=== PATIENT | male | born 1975 | race Native Hawaiian/Other Pacific Islander ===

== ENCOUNTER 2019-04-09 05:22 | Emergency (ER) | payer OTHER ==
[~2019-04-09] VITALS: Ht 182.9 cm; Wt 65.8 kg
--- NOTE | 2019-04-09 06:05 | NUR ---
[facility] ACC[facility]ANIED W/ OFFCERS FOR C/O L POSTERIOR HEAD OPEN BOIL. NOTED W/ DRIED BLOOD.
--- NOTE | 2019-04-09 06:12 | NUR ---
FSBS: 581 MADE AWARE
[2019-04-09] MEDS ORDERED: INSULIN REGULAR, HUMAN 100 UNIT/ML 10 ML VIAL ONE (06:17)
[2019-04-09] MEDS ORDERED: SULFAMETH/TRIMETH 800/160 MG 1 UDTAB TABLET ONE (06:17)
--- NOTE | 2019-04-09 06:24 | NUR ---
Pt was medicated as ordered and Patient discharged under custody w/ officers in stable condition. rx and Written and verbal after care instructions given. Patient verbalizes understanding of instruction.
[2019-04-09 06:28] VITALS: BP 186/109
[2019-04-09] MEDS ORDERED: INSULIN REGULAR, HUMAN 100 UNIT/ML 10 ML VIAL SQ ONE (06:30)
[2019-04-09] MEDS ORDERED: SULFAMETH/TRIMETH 800/160 MG 1 UDTAB TABLET PO ONE (06:30)
== END 2019-04-09 06:29 ==
LOC: ER 05:25
DX: B95.8 Unspecified staphylococcus as the cause of diseases classified elsewhere (principal); I10 Essential (primary) hypertension; E11.65 Type 2 diabetes mellitus with hyperglycemia
CPT/HCPCS: 82962; 96372; 99283; A6403; J1815

== ENCOUNTER 2024-11-25 19:18 | Inpatient (IN) | payer OTHER ==
[~2024-11-25] VITALS: Ht 170.2 cm; Wt 52.6 kg
[2024-11-25 20:37] LABS: BASOPHILS # (AUTO) 0.3 K/uL (0.0-0.2); BASOPHILS % (AUTO) 3.5 % (0.0-2.0); EOSINOPHILS # (AUTO) 0.1 K/uL (0.0-0.7); EOSINOPHILS % (AUTO) 1.5 % (0.0-6.0); HEMATOCRIT 23 % (39-51); HEMOGLOBIN 7.8 g/dL (13.5-17.5); LYMPHOCYTES # (AUTO) 1.3 K/uL (0.8-4.8); LYMPHOCYTES % (AUTO) 13.8 % (20.0-44.0); MEAN CORPUSCULAR HEMOGLOBIN 30 PG (26.0-33.0); MEAN CORPUSCULAR HGB CONC 34 g/dl (31.0-36.0); MEAN CORPUSCULAR VOLUME 89 fL (80-96); MONOCYTES # (AUTO) 0.9 K/uL (0.1-1.30); MONOCYTES % (AUTO) 9.7 % (2.0-12.0); NEUTROPHILS # (AUTO) 6.6 K/uL (1.8-8.9); NEUTROPHILS % (AUTO) 71.5 % (43.0-81.0); PLATELET COUNT (AUTO) 528 K/uL (150-450); RED BLOOD CELL COUNT(AUTO) 2.61 MIL/uL (4.5-6.0); RED CELL DISTRIBUTION WIDTH 20.8 % (11.5-15.0); WHITE BLOOD COUNT (AUTO) 9.2 K/uL (4.3-11.0)
[2024-11-25 20:51] LABS: INR 1.03 (0.91-1.10); PARTIAL THROMBOPLASTIN TIME 34.7 SEC (24.3-34.3); PROTHROMBIN TIME 10.9 SECS (9.2-11.1)
[2024-11-25 20:53] LABS: ALBUMIN 3.5 g/dL (3.4-5.0); BILIRUBIN,DIRECT 0.2 mg/dL (0.0-0.2); BILIRUBIN,TOTAL 0.4 mg/dL (0.2-1.0); CALCIUM, SERUM 10.1 mg/dL (8.5-10.1); TOTAL PROTEIN, SERUM 7.8 g/dL (6.4-8.2)
[2024-11-25 21:02] LABS: CREATININE 11.5 mg/dL (0.6-1.3); POTASSIUM 6.8 mmol/L (3.5-5.1)
[2024-11-25] MEDS: ALBUTEROL FS 2.5 MG/3 ML VIAL.NEB NEB ONE (21:19)
[2024-11-25] MEDS ORDERED: ALBUTEROL FS 2.5 MG/3 ML VIAL.NEB ONE (21:22)
[2024-11-25 21:24] VITALS: O2SAT 99
[2024-11-25] MEDS ORDERED: DEXTROSE 50%-WATER 50 ML DISP.SYRIN IV ONE (21:30)
[2024-11-25] MEDS ORDERED: SODIUM POLYSTYRENE SULFONATE 15 G/60 ML BOTTLE ONE (21:33)
[2024-11-25 21:34] VITALS: O2SAT 100
[2024-11-25] MEDS ORDERED: CALCIUM CHLORIDE 1,000 MG/10 ML DISP.SYRIN ONE (21:34)
[2024-11-25] MEDS ORDERED: SODIUM BICARBONATE SYR 50 MEQ/50 ML DISP.SYRIN ONE (21:34)
[2024-11-25] MEDS ORDERED: INSULIN REGULAR, HUMAN 100 UNIT/ML 10 ML VIAL ONE (21:34)
[2024-11-25] MEDS: CALCIUM CHLORIDE 1,000 MG/10 ML DISP.SYRIN IV ONE (21:35)
[2024-11-25] MEDS: DEXTROSE 50%-WATER 50 ML DISP.SYRIN IV ONE (21:37)
[2024-11-25] MEDS: INSULIN REGULAR, HUMAN 100 UNIT/ML 10 ML VIAL IV ONE (21:38)
[2024-11-25] MEDS: SODIUM POLYSTYRENE SULFONATE 15 G/60 ML BOTTLE PO ONE (21:39)
[2024-11-25] MEDS: SODIUM BICARBONATE SYR 50 MEQ/50 ML DISP.SYRIN IV ONE (21:39)
[2024-11-25 22:08] LABS: ANISOCYTOSIS 1+; BAND % (MANUAL) 1 % (0.0-5.0); EOSINOPHILS % (MANUAL) 1 % (0-4); LYMPHOCYTES % (MANUAL) 15 % (16-48); MONOCYTES % (MANUAL) 6 % (0-11.0); NEUTROPHILS % (MANUAL) 77 (42-76); PLATELET ESTIMATE INCRE
[2024-11-25 22:09] LABS: TARGET CELLS 1+
[2024-11-25] MEDS ORDERED: ACETAMINOPHEN 325 MG TABLET PO PRN (23:00)
[2024-11-25] MEDS ORDERED: MAG HYDROX/AL HYDROX/SIMETH 30 ML UDC PO PRN (23:00)
[2024-11-25] MEDS ORDERED: MAGNESIUM HYDROXIDE 30 ML UDC PO PRN (23:00)
[2024-11-25] MEDS ORDERED: DEXTROSE 50%-WATER 50 ML DISP.SYRIN IV PRN (23:30)
[2024-11-25] MEDS ORDERED: INSULIN REGULAR, HUMAN 100 UNIT/ML 3 ML VIAL SQ PRN (23:30)
[2024-11-26] VITALS: BP 167/62; TEMP 97.5; O2SAT 100
[2024-11-26 04:00] VITALS: BP 167/62; TEMP 97.5; O2SAT 100
[2024-11-26] MEDS ORDERED: BLOOD SUGAR DIAGNOSTIC 1 EACH STRIP IN SCH (06:00)
[2024-11-26] MEDS: BLOOD SUGAR DIAGNOSTIC 1 EACH STRIP IN SCH (07:30)
[2024-11-26] MEDS ORDERED: ASPI-1169 PO (08:40)
[2024-11-26] MEDS ORDERED: INSU100V39 SQ (08:40)
[2024-11-26] MEDS ORDERED: HYDR-4076 PO (08:40)
[2024-11-26] MEDS ORDERED: NUT.237L67 PO (08:40)
[2024-11-26] MEDS ORDERED: AMIN30LI2 PO (08:40)
[2024-11-26] MEDS ORDERED: PANT40SU2 PO (08:40)
[2024-11-26] MEDS ORDERED: FOLI0.8T3 PO (08:40)
[2024-11-26] MEDS ORDERED: ATOR80TA PO (08:40)
[2024-11-26] MEDS ORDERED: FOLI0.8T2 PO (08:40)
[2024-11-26] MEDS ORDERED: METO5TAB2 PO (08:40)
[2024-11-26] MEDS ORDERED: HEPA50007 SQ (08:40)
[2024-11-26] MEDS ORDERED: CHOL500062 PO (08:40)
[2024-11-26] MEDS ORDERED: TICA90TA PO (08:40)
[2024-11-26] MEDS ORDERED: CARV12.52 PO (08:40)
[2024-11-26] MEDS ORDERED: EPOE40002 SQ (08:40)
[2024-11-26] MEDS ORDERED: SUCR1TAB PO (08:40)
[2024-11-26] MEDS: PANTOPRAZOLE 40 MG VIAL IV SCH (08:52)
[2024-11-26] MEDS: HEPARIN SODIUM, PORCINE 5000 UNITS/1 ML VIAL SQ SCH (08:52)
[2024-11-26] MEDS: SODIUM ZIRCONIUM CYCLOSILICATE 10 GM POWD.PACK GT ONE (15:23)
[2024-11-26] MEDS: SODIUM ZIRCONIUM CYCLOSILICATE 10 GM POWD.PACK ONE (15:24)
[2024-11-27] VITALS (24 sets, daily range): BP systolic 137–198; BP diastolic 57–103; TEMP 98–98.2; O2SAT 0–100
[2024-11-27] MEDS: SODIUM ZIRCONIUM CYCLOSILICATE 10 GM POWD.PACK PO SCH (09:30)
[2024-11-27] MEDS: SODIUM BICARBONATE SYR 50 MEQ/50 ML DISP.SYRIN IV ONE (09:32)
[2024-11-27] MEDS: OLANZAPINE 10 MG VIAL IM ONE (10:39)
[2024-11-27] MEDS: DEXTROSE 50%-WATER 50 ML DISP.SYRIN IV PRN (11:55)
[2024-11-27 12:56] LABS: BASOPHILS # (AUTO) 0.7 K/uL (0.0-0.2); EOSINOPHILS # (AUTO) 0.2 K/uL (0.0-0.7); EOSINOPHILS % (AUTO) 1.3 % (0.0-6.0); HEMATOCRIT 23 % (39-51); HEMOGLOBIN 7.5 g/dL (13.5-17.5); LYMPHOCYTES # (AUTO) 2.4 K/uL (0.8-4.8); LYMPHOCYTES % (AUTO) 19.5 % (20.0-44.0); MEAN CORPUSCULAR HEMOGLOBIN 30 PG (26.0-33.0); MEAN CORPUSCULAR HGB CONC 33 g/dl (31.0-36.0); MEAN CORPUSCULAR VOLUME 91 fL (80-96); MONOCYTES # (AUTO) 1.3 K/uL (0.1-1.30); MONOCYTES % (AUTO) 10.7 % (2.0-12.0); NEUTROPHILS # (AUTO) 7.8 K/uL (1.8-8.9); NEUTROPHILS % (AUTO) 62.8 % (43.0-81.0); PLATELET COUNT (AUTO) 549 K/uL (150-450); RED BLOOD CELL COUNT(AUTO) 2.49 MIL/uL (4.5-6.0); RED CELL DISTRIBUTION WIDTH 20.6 % (11.5-15.0); WHITE BLOOD COUNT (AUTO) 12.4 K/uL (4.3-11.0)
[2024-11-27 13:17] LABS: BASOPHILS % (AUTO) 5.7 % (0.0-2.0)
[2024-11-27 14:47] LABS: CALCIUM, SERUM 9.1 mg/dL (8.5-10.1); MAGNESIUM 2.2 mg/dL (1.8-2.4); POTASSIUM 3.9 mmol/L (3.5-5.1)
[2024-11-27 14:56] LABS: CREATININE 7.6 mg/dL (0.6-1.3)
[2024-11-27] MEDS ORDERED: SODIUM ZIRCONIUM CYCLOSILICATE 10 GM POWD.PACK PO SCH (21:00)
[2024-11-27] MEDS: INSULIN REGULAR, HUMAN 100 UNIT/ML 3 ML VIAL SQ PRN (21:37)
[2024-11-27] MEDS: hydrALAZINE HCL IV 20 MG VIAL IV PRN (23:10)
[2024-11-28] VITALS (29 sets, daily range): BP systolic 101–181; BP diastolic 45–94; TEMP 98–99; O2SAT 96–100
[2024-11-28 04:41] LABS: BASOPHILS # (AUTO) 0.2 K/uL (0.0-0.2); BASOPHILS % (AUTO) 2.3 % (0.0-2.0); EOSINOPHILS % (AUTO) 0.5 % (0.0-6.0); LYMPHOCYTES # (AUTO) 0.8 K/uL (0.8-4.8); LYMPHOCYTES % (AUTO) 8.6 % (20.0-44.0); MEAN CORPUSCULAR HEMOGLOBIN 31 PG (26.0-33.0); MEAN CORPUSCULAR HGB CONC 35 g/dl (31.0-36.0); MEAN CORPUSCULAR VOLUME 89 fL (80-96); MONOCYTES # (AUTO) 0.9 K/uL (0.1-1.30); MONOCYTES % (AUTO) 9.5 % (2.0-12.0); NEUTROPHILS # (AUTO) 7.8 K/uL (1.8-8.9); NEUTROPHILS % (AUTO) 79.1 % (43.0-81.0); PLATELET COUNT (AUTO) 488 K/uL (150-450); RED BLOOD CELL COUNT(AUTO) 2.25 MIL/uL (4.5-6.0); RED CELL DISTRIBUTION WIDTH 20.5 % (11.5-15.0); WHITE BLOOD COUNT (AUTO) 9.8 K/uL (4.3-11.0)
[2024-11-28 05:04] LABS: CALCIUM, SERUM 9.1 mg/dL (8.5-10.1); MAGNESIUM 2.1 mg/dL (1.8-2.4); PHOSPHORUS 6.2 mg/dL (2.5-4.9); POTASSIUM 5.1 mmol/L (3.5-5.1)
[2024-11-28 05:08] LABS: CREATININE 8.6 mg/dL (0.6-1.3)
[2024-11-28 05:12] LABS: HEMATOCRIT 20 % (39-51); HEMOGLOBIN 6.9 g/dL (13.5-17.5)
[2024-11-28 06:31] LABS: BAND % (MANUAL) 5 % (0.0-5.0); BASOPHILS % (MANUAL) 0 % (0.0-2.0); EOSINOPHILS % (MANUAL) 0 % (0-4); LYMPHOCYTES % (MANUAL) 11 % (16-48); MONOCYTES % (MANUAL) 8 % (0-11.0); NEUTROPHILS % (MANUAL) 76 (42-76); PLATELET ESTIMATE ADEQUATE
[2024-11-28 06:34] LABS: ANISOCYTOSIS 1+; HYPOCHROMASIA FEW; STOMATOCYTES 1+
[2024-11-28] MEDS: EPOETIN ALFA (10,000 UNIT) 10,000 UNIT/ML VIAL SQ ONE (10:56)
[2024-11-28] MEDS: NEPRO VAN 237 ML CAN PO PRN (17:24)
[2024-11-28] MEDS: NEPRO VAN 237 ML CAN GT SCH (20:47)
[2024-11-28] MEDS ORDERED: NEPRO VAN 237 ML CAN PO SCH (21:00)
[2024-11-28] MEDS: OLANZAPINE 10 MG VIAL IM PRN (22:35)
[2024-11-29] VITALS (15 sets, daily range): BP systolic 82–180; BP diastolic 65–91; TEMP 98.2–98.6; O2SAT 96–100
[2024-11-29] MEDS: BLOOD SUGAR DIAGNOSTIC 1 EACH STRIP IN SCH (01:07)
[2024-11-29] MEDS: ONDANSETRON HCL/PF 4 MG/2 ML VIAL IVP PRN (02:02)
[2024-11-29 03:51] LABS: BASOPHILS # (AUTO) 0.1 K/uL (0.0-0.2); BASOPHILS % (AUTO) 0.7 % (0.0-2.0); EOSINOPHILS % (AUTO) 0.4 % (0.0-6.0); HEMATOCRIT 27 % (39-51); HEMOGLOBIN 8.9 g/dL (13.5-17.5); LYMPHOCYTES # (AUTO) 0.7 K/uL (0.8-4.8); LYMPHOCYTES % (AUTO) 7.6 % (20.0-44.0); MEAN CORPUSCULAR HEMOGLOBIN 30 PG (26.0-33.0); MEAN CORPUSCULAR HGB CONC 33 g/dl (31.0-36.0); MEAN CORPUSCULAR VOLUME 91 fL (80-96); MONOCYTES % (AUTO) 10.9 % (2.0-12.0); NEUTROPHILS % (AUTO) 80.4 % (43.0-81.0); PLATELET COUNT (AUTO) 492 K/uL (150-450); RED BLOOD CELL COUNT(AUTO) 2.98 MIL/uL (4.5-6.0); RED CELL DISTRIBUTION WIDTH 19.2 % (11.5-15.0); WHITE BLOOD COUNT (AUTO) 8.8 K/uL (4.3-11.0)
[2024-11-29 04:00] LABS: CALCIUM, SERUM 9.5 mg/dL (8.5-10.1); MAGNESIUM 2.2 mg/dL (1.8-2.4); POTASSIUM 4.2 mmol/L (3.5-5.1)
[2024-11-29] MEDS: PANTOPRAZOLE 40 MG/PACK PACK GT SCH (09:18)
[2024-11-29] MEDS: EPOETIN ALFA (10,000 UNIT) 10,000 UNIT/ML VIAL SQ ONE (12:33)
[2024-11-30] VITALS (7 sets, daily range): BP systolic 144–189; BP diastolic 66–83; TEMP 98.1–99; O2SAT 96–100
[2024-11-30 03:09] LABS: HEPATITIS B SURFACE AB (QUAL) Reactive (.)
[2024-11-30] MEDS ORDERED: QUET25TA GT (12:40)
== END 2024-12-01 01:05 | DRG 425 ==
LOC: ER 19:20 → TELE1 22:49 → ICU 11-27 10:37 → TELE1 11-29 08:59
PROVIDERS: ATTEND Nurse Practitioner Acute Care
PROC: 5A1D70Z Performance of Urinary Filtration, Intermittent, Less than 6 Hours Per Day (ICD-10-PCS; principal; 2024-11-26)
PROC: 30233N1 Transfusion of Nonautologous Red Blood Cells into Peripheral Vein, Percutaneous Approach (ICD-10-PCS; 2024-11-28)
DX: E87.5 Hyperkalemia (principal); G92.8 Other toxic encephalopathy; D68.59 Other primary thrombophilia; I13.2 Hypertensive heart and chronic kidney disease with heart failure and with stage 5 chronic kidney disease, or end stage renal disease; N18.6 End stage renal disease; F29 Unspecified psychosis not due to a substance or known physiological condition; G81.91 Hemiplegia, unspecified affecting right dominant side; E11.22 Type 2 diabetes mellitus with diabetic chronic kidney disease; D63.1 Anemia in chronic kidney disease; I48.20 Chronic atrial fibrillation, unspecified; E87.1 Hypo-osmolality and hyponatremia; I50.32 Chronic diastolic (congestive) heart failure; Z91.158 Patient's noncompliance with renal dialysis for other reason; Z87.19 Personal history of other diseases of the digestive system; Z99.2 Dependence on renal dialysis; R13.10 Dysphagia, unspecified; I25.2 Old myocardial infarction; Z74.01 Bed confinement status; M89.8X9 Other specified disorders of bone, unspecified site; Z53.20 Procedure and treatment not carried out because of patient's decision for unspecified reasons; Z93.1 Gastrostomy status; E78.5 Hyperlipidemia, unspecified
CPT/HCPCS: 36415; 80048-TC; 80076-TC; 82962-TC; 83735-TC; 84100-TC; 85025-TC; 85730-TC; 86706; 86850-TC; 87081-TC; 87340; 90935-TC; 92526; 92611-TC; 97530-TC; 97535-TC; G0378; J0360; J0885; J1644; J1815; J2405; J2470; J3490; J7030; J7050; P9016

== ENCOUNTER 2025-01-14 15:37 | Inpatient (IN) | payer OTHER ==
[~2025-01-14] VITALS: Ht 177.8 cm; Wt 45.4 kg
[~2025-01-14 15:37] MED LIST: AMIN30LI2 GT; ASPI-1169 GT; ATOR80TA GT; CARV12.52 GT; CHOL500062 GT; EPOE40002 SQ; FOLI0.8T2 GT; FOLI0.8T3 GT; HEPA50007 SQ; HYDR-4076 GT; INSU100V39 SQ; METO5TAB2 GT; NUT.237L67 PO; PANT40SU2 GT; QUET25TA GT; SUCR1TAB GT; TICA90TA GT
[2025-01-14] MEDS ORDERED: HALOPERIDOL LACTATE INJ 5 MG/ML VIAL ONE (16:19)
[2025-01-14] MEDS: HALOPERIDOL LACTATE INJ 5 MG/ML VIAL IM ONE (16:30)
[2025-01-14] MEDS: PANTOPRAZOLE 80 MG in IV NS 0.9% 100 ML IV ONE (16:36)
[2025-01-14] MEDS ORDERED: QUET25TA GT (16:38)
[2025-01-14] MEDS ORDERED: LORA-259 GT (16:38)
[2025-01-14] MEDS ORDERED: ONDA-97 GT (16:38)
[2025-01-14 16:49] LABS: BASOPHILS # (AUTO) 0.1 K/uL (0.0-0.2); BASOPHILS % (AUTO) 0.7 % (0.0-2.0); EOSINOPHILS % (AUTO) 0.2 % (0.0-6.0); LYMPHOCYTES # (AUTO) 2.3 K/uL (0.8-4.8); LYMPHOCYTES % (AUTO) 12.4 % (20.0-44.0); MEAN CORPUSCULAR HEMOGLOBIN 32 PG (26.0-33.0); MEAN CORPUSCULAR HGB CONC 32 g/dl (31.0-36.0); MEAN CORPUSCULAR VOLUME 102 fL (80-96); MONOCYTES # (AUTO) 1.2 K/uL (0.1-1.30); MONOCYTES % (AUTO) 6.3 % (2.0-12.0); NEUTROPHILS # (AUTO) 15.2 K/uL (1.8-8.9); NEUTROPHILS % (AUTO) 80.4 % (43.0-81.0); PLATELET COUNT (AUTO) 499 K/uL (150-450); RED CELL DISTRIBUTION WIDTH 20.6 % (11.5-15.0); WHITE BLOOD COUNT (AUTO) 18.9 K/uL (4.3-11.0)
[2025-01-14 16:55] LABS: HEMATOCRIT 20 % (39-51); RED BLOOD CELL COUNT(AUTO) 1.98 MIL/uL (4.5-6.0)
[2025-01-14 16:56] LABS: HEMOGLOBIN 6.4 g/dL (13.5-17.5)
[2025-01-14 16:57] LABS: INR 0.96 (0.91-1.10); PARTIAL THROMBOPLASTIN TIME 37.8 SEC (24.3-34.3); PROTHROMBIN TIME 10.2 SECS (9.2-11.1)
[2025-01-14 17:10] LABS: ALANINE AMINOTRANSFERASE 12 U/L (12-78); ALBUMIN 3.3 g/dL (3.4-5.0); ALKALINE PHOSPHATASE 55 U/L (46-116); ASPARTATE AMINOTRANSFERASE 13 U/L (15-37); BILIRUBIN,TOTAL 0.4 mg/dL (0.2-1.0); CALCIUM, SERUM 9.6 mg/dL (8.5-10.1); CARBON DIOXIDE 23 mmol/L (21-32); GLUCOSE 115 mg/dL (74-106); TOTAL PROTEIN, SERUM 7.2 g/dL (6.4-8.2)
[2025-01-14 17:14] LABS: CREATININE 13.7 mg/dL (0.6-1.3); UREA NITROGEN, BLOOD 103 mg/dL (7-18)
[2025-01-14 17:45] LABS: BILIRUBIN,DIRECT 0.1 mg/dL (0.0-0.2); CHLORIDE 98 mmol/L (98-107); SODIUM SERUM 134 mmol/L (136-145)
[2025-01-14 18:42] LABS: BASOPHILS % (MANUAL) 0 % (0.0-2.0); EOSINOPHILS % (MANUAL) 0 % (0-4); LYMPHOCYTES % (MANUAL) 13 % (16-48); MONOCYTES % (MANUAL) 7 % (0-11.0); NEUTROPHILS % (MANUAL) 80 (42-76)
[2025-01-14 18:43] LABS: HYPOCHROMASIA 1+; PLATELET ESTIMATE INCREASED
[2025-01-14] MEDS ORDERED: ACETAMINOPHEN 325 MG TABLET PO PRN (20:00)
[2025-01-14] MEDS ORDERED: QUETIAPINE FUMARATE 25 MG TABLET GT PRN (20:00)
[2025-01-14] MEDS ORDERED: ONDANSETRON HCL/PF 4 MG/2 ML VIAL IVP PRN (20:00)
[2025-01-14] MEDS ORDERED: MAG HYDROX/AL HYDROX/SIMETH 30 ML UDC PO PRN (20:00)
[2025-01-14] MEDS ORDERED: Z GUARD REMEDY 4 OZ OINT TP PRN (20:00)
[2025-01-14] MEDS ORDERED: MAGNESIUM HYDROXIDE 30 ML UDC PO PRN (20:00)
[2025-01-14] MEDS ORDERED: DEXTROSE 50%-WATER 50 ML DISP.SYRIN IV PRN (20:00)
[2025-01-14 20:30] VITALS: BP 128/78; TEMP 98.8; O2SAT 100
[2025-01-14] MEDS: SUCRALFATE 1 G TABLET GT SCH (22:30)
[2025-01-14] MEDS: ATORVASTATIN 40 MG TABLET GT SCH (22:30)
[2025-01-15] VITALS (8 sets, daily range): BP systolic 73–137; BP diastolic 45–91; TEMP 97.3–98.4; O2SAT 95–100
[2025-01-15] MEDS: BLOOD SUGAR DIAGNOSTIC 1 EACH STRIP IN SCH (00:19)
[2025-01-15] MEDS: METOCLOPRAMIDE HCL 10 MG/10 ML UDC GT SCH (00:23)
[2025-01-15 07:03] LABS: BASOPHILS # (AUTO) 0.1 K/uL (0.0-0.2); BASOPHILS % (AUTO) 0.6 % (0.0-2.0); CALCIUM, SERUM 9.5 mg/dL (8.5-10.1); EOSINOPHILS # (AUTO) 0.2 K/uL (0.0-0.7); EOSINOPHILS % (AUTO) 1.1 % (0.0-6.0); HEMATOCRIT 21 % (39-51); LYMPHOCYTES # (AUTO) 2.6 K/uL (0.8-4.8); LYMPHOCYTES % (AUTO) 13.9 % (20.0-44.0); MAGNESIUM 3.1 mg/dL (1.8-2.4); MEAN CORPUSCULAR HEMOGLOBIN 31 PG (26.0-33.0); MEAN CORPUSCULAR HGB CONC 33 g/dl (31.0-36.0); MEAN CORPUSCULAR VOLUME 95 fL (80-96); MONOCYTES # (AUTO) 1.6 K/uL (0.1-1.30); MONOCYTES % (AUTO) 8.4 % (2.0-12.0); NEUTROPHILS # (AUTO) 14.1 K/uL (1.8-8.9); PHOSPHORUS 4.6 mg/dL (2.5-4.9); PLATELET COUNT (AUTO) 445 K/uL (150-450); POTASSIUM 3.8 mmol/L (3.5-5.1); RED CELL DISTRIBUTION WIDTH 23.5 % (11.5-15.0); WHITE BLOOD COUNT (AUTO) 18.6 K/uL (4.3-11.0)
[2025-01-15 08:00] LABS: OCCULT BLOOD STOOL POSITIVE (NEGATIVE)
[2025-01-15 08:30] LABS: HEMOGLOBIN 6.8 g/dL (13.5-17.5)
[2025-01-15] MEDS: CHOLECALCIFEROL 1,000 UNIT TABLET (VIT D3) GT SCH (09:00)
[2025-01-15] MEDS: CARVEDILOL 12.5 MG TABLET GT SCH (09:00)
[2025-01-15] MEDS: hydrALAZINE HCL 25 MG TABLET GT SCH (09:00)
[2025-01-15] MEDS: FOLIC ACID 1 MG TABLET GT SCH (09:00)
[2025-01-15] MEDS: PROSOURCE / PROSTAT (PYXIS) 30 ML UDC GT SCH (09:00)
[2025-01-15] MEDS: NEPRO VAN 237 ML CAN PO SCH (09:00)
[2025-01-15] MEDS: VIT B CMPLX 3/FA/VIT C/BIOTIN 1 TAB TABLET GT SCH (09:00)
[2025-01-15] MEDS ORDERED: TICAGRELOR 90 MG TABLET GT SCH (09:00)
[2025-01-15 09:56] LABS: LYMPHOCYTES % (MANUAL) 12 % (16-48); NEUTROPHILS % (MANUAL) 82 (42-76)
[2025-01-15 09:57] LABS: ANISOCYTOSIS 2+; BASOPHILS % (MANUAL) 0 % (0.0-2.0); EOSINOPHILS % (MANUAL) 1 % (0-4); MONOCYTES % (MANUAL) 5 % (0-11.0); PLATELET ESTIMATE ADEQUATE
[2025-01-15] MEDS: PANTOPRAZOLE 40 MG VIAL IV SCH (10:28)
[2025-01-15] MEDS: EPOETIN ALFA (10,000 UNIT) 10,000 UNIT/ML VIAL SQ ONE (12:10)
[2025-01-16] VITALS: BP 146/48; TEMP 97.8; O2SAT 100
[2025-01-16 04:00] VITALS: BP_SYST 134; BP_DIAS 34; BP_DIAS 40; TEMP 97.5; TEMP 98.1; O2SAT 100
[2025-01-16 07:28] LABS: BASOPHILS # (AUTO) 0.1 K/uL (0.0-0.2); BASOPHILS % (AUTO) 0.9 % (0.0-2.0); EOSINOPHILS # (AUTO) 0.1 K/uL (0.0-0.7); HEMATOCRIT 30 % (39-51); LYMPHOCYTES # (AUTO) 1.9 K/uL (0.8-4.8); LYMPHOCYTES % (AUTO) 19.2 % (20.0-44.0); MEAN CORPUSCULAR HEMOGLOBIN 32 PG (26.0-33.0); MEAN CORPUSCULAR HGB CONC 33 g/dl (31.0-36.0); MEAN CORPUSCULAR VOLUME 98 fL (80-96); MONOCYTES % (AUTO) 10.2 % (2.0-12.0); NEUTROPHILS # (AUTO) 6.8 K/uL (1.8-8.9); NEUTROPHILS % (AUTO) 68.7 % (43.0-81.0); PLATELET COUNT (AUTO) 483 K/uL (150-450)
[2025-01-16 08:04] LABS: ALBUMIN 3.2 g/dL (3.4-5.0); BILIRUBIN,TOTAL 0.7 mg/dL (0.2-1.0); CALCIUM, SERUM 9.3 mg/dL (8.5-10.1); MAGNESIUM 2.8 mg/dL (1.8-2.4); PHOSPHORUS 3.9 mg/dL (2.5-4.9); POTASSIUM 3.8 mmol/L (3.5-5.1)
[2025-01-16 20:00] VITALS: BP 166/85; TEMP 98.1; O2SAT 100
[2025-01-16] MEDS: INSULIN REGULAR, HUMAN 100 UNIT/ML 3 ML VIAL SQ PRN (23:59)
[2025-01-17 00:15] VITALS: BP 143/83; TEMP 98.5; O2SAT 100
[2025-01-17 03:57] VITALS: BP 136/82; TEMP 98.9; O2SAT 100
[2025-01-17 07:00] VITALS: BP 145/92; TEMP 97.7; O2SAT 97
[2025-01-17 07:42] LABS: BASOPHILS # (AUTO) 0.1 K/uL (0.0-0.2); BASOPHILS % (AUTO) 0.8 % (0.0-2.0); EOSINOPHILS # (AUTO) 0.1 K/uL (0.0-0.7); EOSINOPHILS % (AUTO) 0.8 % (0.0-6.0); HEMATOCRIT 32 % (39-51); HEMOGLOBIN 10.4 g/dL (13.5-17.5); LYMPHOCYTES # (AUTO) 1.3 K/uL (0.8-4.8); MEAN CORPUSCULAR HEMOGLOBIN 32 PG (26.0-33.0); MEAN CORPUSCULAR HGB CONC 33 g/dl (31.0-36.0); MEAN CORPUSCULAR VOLUME 97 fL (80-96); MONOCYTES # (AUTO) 0.9 K/uL (0.1-1.30); MONOCYTES % (AUTO) 11.3 % (2.0-12.0); NEUTROPHILS # (AUTO) 5.7 K/uL (1.8-8.9); NEUTROPHILS % (AUTO) 71.1 % (43.0-81.0); PLATELET COUNT (AUTO) 458 K/uL (150-450); RED BLOOD CELL COUNT(AUTO) 3.28 MIL/uL (4.5-6.0); RED CELL DISTRIBUTION WIDTH 21.7 % (11.5-15.0)
[2025-01-17 08:10] LABS: ALBUMIN 3.3 g/dL (3.4-5.0); BILIRUBIN,TOTAL 0.5 mg/dL (0.2-1.0); CALCIUM, SERUM 9.3 mg/dL (8.5-10.1); MAGNESIUM 2.7 mg/dL (1.8-2.4); PHOSPHORUS 3.8 mg/dL (2.5-4.9); POTASSIUM 3.6 mmol/L (3.5-5.1); TOTAL PROTEIN, SERUM 6.9 g/dL (6.4-8.2)
[2025-01-17 08:35] LABS: CREATININE 10.6 mg/dL (0.6-1.3)
[2025-01-17] MEDS ORDERED: BARIUM SULFATE 98% 135 ML SUSP.RECON PO ONE (11:18)
[2025-01-17 12:00] VITALS: BP 169/95; TEMP 97.7; O2SAT 100
[2025-01-17] MEDS: NEPRO 1,000 ML BOTTLE GT PRN (13:00)
[2025-01-17 14:44] VITALS: BP 169/95
== END 2025-01-17 17:30 | DRG 663 ==
LOC: ER 15:46 → TELE 19:44 → MED 01-17 11:33
PROC: 30233N1 Transfusion of Nonautologous Red Blood Cells into Peripheral Vein, Percutaneous Approach (ICD-10-PCS; principal; 2025-01-14)
PROC: 5A1D70Z Performance of Urinary Filtration, Intermittent, Less than 6 Hours Per Day (ICD-10-PCS; 2025-01-17)
DX: D50.0 Iron deficiency anemia secondary to blood loss (chronic) (principal); G93.41 Metabolic encephalopathy; I13.2 Hypertensive heart and chronic kidney disease with heart failure and with stage 5 chronic kidney disease, or end stage renal disease; D68.59 Other primary thrombophilia; I21.A1 Myocardial infarction type 2; E44.1 Mild protein-calorie malnutrition; E88.09 Other disorders of plasma-protein metabolism, not elsewhere classified; E87.1 Hypo-osmolality and hyponatremia; N18.6 End stage renal disease; K92.2 Gastrointestinal hemorrhage, unspecified; I69.351 Hemiplegia and hemiparesis following cerebral infarction affecting right dominant side; I50.42 Chronic combined systolic (congestive) and diastolic (congestive) heart failure; R13.10 Dysphagia, unspecified; I25.2 Old myocardial infarction; Z79.4 Long term (current) use of insulin; E87.5 Hyperkalemia; D72.829 Elevated white blood cell count, unspecified; I48.91 Unspecified atrial fibrillation; Z74.01 Bed confinement status; Z99.2 Dependence on renal dialysis; Z93.1 Gastrostomy status; Z79.899 Other long term (current) drug therapy; Z91.158 Patient's noncompliance with renal dialysis for other reason
CPT/HCPCS: 36415; 71045-TC; 74230-TC; 80048-TC; 80053-TC; 80076-TC; 82272-TC; 82962-TC; 83735-TC; 84100-TC; 84484-TC; 85025-TC; 85730-TC; 86850-TC; 87081-TC; 90935-TC; 92526; 92611-TC; 93307-TC; A6403; G0378; J0885; J1630; J1815; J2470; J7030; J8597; P9016

== ENCOUNTER 2025-01-19 18:02 | Inpatient (IN) | payer OTHER ==
[~2025-01-19] VITALS: Ht 177.8 cm; Wt 46.3 kg
[~2025-01-19 18:02] MED LIST changes: -HEPA50007 SQ; +LORA-259 GT; +ONDA-97 GT; -TICA90TA GT
[2025-01-19 18:41] LABS: BASOPHILS # (AUTO) 0.1 K/uL (0.0-0.2); BASOPHILS % (AUTO) 1.2 % (0.0-2.0); EOSINOPHILS # (AUTO) 0.3 K/uL (0.0-0.7); EOSINOPHILS % (AUTO) 3.6 % (0.0-6.0); HEMATOCRIT 33 % (39-51); HEMOGLOBIN 10.9 g/dL (13.5-17.5); LYMPHOCYTES % (AUTO) 29.6 % (20.0-44.0); MEAN CORPUSCULAR HEMOGLOBIN 32 PG (26.0-33.0); MEAN CORPUSCULAR HGB CONC 33 g/dl (31.0-36.0); MEAN CORPUSCULAR VOLUME 97 fL (80-96); MONOCYTES # (AUTO) 0.9 K/uL (0.1-1.30); MONOCYTES % (AUTO) 13.4 % (2.0-12.0); NEUTROPHILS # (AUTO) 3.6 K/uL (1.8-8.9); NEUTROPHILS % (AUTO) 52.2 % (43.0-81.0); PLATELET COUNT (AUTO) 499 K/uL (150-450); RED BLOOD CELL COUNT(AUTO) 3.41 MIL/uL (4.5-6.0); RED CELL DISTRIBUTION WIDTH 22.6 % (11.5-15.0); WHITE BLOOD COUNT (AUTO) 6.9 K/uL (4.3-11.0)
[2025-01-19 18:52] LABS: MAGNESIUM 3.1 mg/dL (1.8-2.4); PHOSPHORUS 4.3 mg/dL (2.5-4.9)
[2025-01-19 18:55] LABS: ALANINE AMINOTRANSFERASE < 6 U/L (12-78); ALKALINE PHOSPHATASE 85 U/L (46-116); ASPARTATE AMINOTRANSFERASE 15 U/L (15-37); BILIRUBIN,DIRECT 0.1 mg/dL (0.0-0.2); BILIRUBIN,TOTAL 0.4 mg/dL (0.2-1.0); CALCIUM, SERUM 9.8 mg/dL (8.5-10.1); CARBON DIOXIDE 21 mmol/L (21-32); CHLORIDE 94 mmol/L (98-107); GLUCOSE 110 mg/dL (74-106); POTASSIUM 3.9 mmol/L (3.5-5.1); SODIUM SERUM 131 mmol/L (136-145); TOTAL PROTEIN, SERUM 7.1 g/dL (6.4-8.2)
[2025-01-19 18:57] LABS: UREA NITROGEN, BLOOD 83 mg/dL (7-18)
[2025-01-19 18:58] LABS: CREATININE 13.8 mg/dL (0.6-1.3)
[2025-01-19] MEDS ORDERED: Z GUARD REMEDY 4 OZ OINT TP PRN (21:00)
[2025-01-19] MEDS ORDERED: DEXTROSE 50%-WATER 50 ML DISP.SYRIN IV PRN (21:00)
[2025-01-19] MEDS ORDERED: ACETAMINOPHEN 325 MG TABLET MC PRN (21:00)
[2025-01-19] MEDS ORDERED: ONDANSETRON HCL/PF 4 MG/2 ML VIAL IVP PRN (21:00)
[2025-01-20] VITALS: BP 151/81; TEMP 97.5; O2SAT 100
[2025-01-20] MEDS: BLOOD SUGAR DIAGNOSTIC 1 EACH STRIP IN SCH (00:24)
[2025-01-20 04:00] VITALS: BP 152/85; TEMP 97.6; O2SAT 100
[2025-01-20] MEDS: INSULIN REGULAR, HUMAN 100 UNIT/ML 3 ML VIAL SQ PRN (06:34)
[2025-01-20 08:00] VITALS: BP 143/75; TEMP 97.9; O2SAT 98
[2025-01-20 10:32] LABS: BASOPHILS # (AUTO) 0.1 K/uL (0.0-0.2); BASOPHILS % (AUTO) 1.2 % (0.0-2.0); EOSINOPHILS # (AUTO) 0.3 K/uL (0.0-0.7); EOSINOPHILS % (AUTO) 3.7 % (0.0-6.0); HEMATOCRIT 34 % (39-51); HEMOGLOBIN 10.8 g/dL (13.5-17.5); LYMPHOCYTES # (AUTO) 1.8 K/uL (0.8-4.8); MEAN CORPUSCULAR HEMOGLOBIN 31 PG (26.0-33.0); MEAN CORPUSCULAR HGB CONC 32 g/dl (31.0-36.0); MEAN CORPUSCULAR VOLUME 97 fL (80-96); MONOCYTES # (AUTO) 0.9 K/uL (0.1-1.30); MONOCYTES % (AUTO) 11.1 % (2.0-12.0); NEUTROPHILS # (AUTO) 4.8 K/uL (1.8-8.9); PLATELET COUNT (AUTO) 527 K/uL (150-450); RED BLOOD CELL COUNT(AUTO) 3.44 MIL/uL (4.5-6.0); RED CELL DISTRIBUTION WIDTH 21.5 % (11.5-15.0); WHITE BLOOD COUNT (AUTO) 7.8 K/uL (4.3-11.0)
[2025-01-20 10:40] LABS: CALCIUM, SERUM 10.2 mg/dL (8.5-10.1); MAGNESIUM 3.1 mg/dL (1.8-2.4); PHOSPHORUS 4.4 mg/dL (2.5-4.9); POTASSIUM 3.9 mmol/L (3.5-5.1)
[2025-01-20 10:50] LABS: CREATININE 15.4 mg/dL (0.6-1.3)
[2025-01-20 12:00] VITALS: BP 140/87; TEMP 97.9; O2SAT 98
[2025-01-20 16:00] VITALS: BP 135/86; TEMP 97.9; O2SAT 98
[2025-01-20 20:00] VITALS: BP 133/71; TEMP 98.8; O2SAT 97
[2025-01-21] VITALS: BP 157/98; TEMP 98.2; O2SAT 97
[2025-01-21 04:00] VITALS: BP 133/84; TEMP 98.4; O2SAT 97
[2025-01-21 08:22] VITALS: BP 136/73; TEMP 98.1; O2SAT 98
[2025-01-21 12:00] VITALS: BP 136/73; TEMP 98.1; O2SAT 98
[2025-01-21] MEDS ORDERED: QUETIAPINE FUMARATE 25 MG TABLET GT PRN (15:00)
[2025-01-21 16:00] VITALS: BP 118/73; TEMP 98.1; O2SAT 98
[2025-01-21 16:51] LABS: BASOPHILS # (AUTO) 0.1 K/uL (0.0-0.2); BASOPHILS % (AUTO) 1.3 % (0.0-2.0); EOSINOPHILS # (AUTO) 0.2 K/uL (0.0-0.7); EOSINOPHILS % (AUTO) 2.3 % (0.0-6.0); HEMATOCRIT 32 % (39-51); HEMOGLOBIN 10.5 g/dL (13.5-17.5); LYMPHOCYTES # (AUTO) 1.4 K/uL (0.8-4.8); LYMPHOCYTES % (AUTO) 20.8 % (20.0-44.0); MEAN CORPUSCULAR HEMOGLOBIN 33 PG (26.0-33.0); MEAN CORPUSCULAR HGB CONC 33 g/dl (31.0-36.0); MEAN CORPUSCULAR VOLUME 98 fL (80-96); MONOCYTES # (AUTO) 0.8 K/uL (0.1-1.30); MONOCYTES % (AUTO) 12.1 % (2.0-12.0); NEUTROPHILS # (AUTO) 4.2 K/uL (1.8-8.9); NEUTROPHILS % (AUTO) 63.5 % (43.0-81.0); PLATELET COUNT (AUTO) 542 K/uL (150-450); RED BLOOD CELL COUNT(AUTO) 3.22 MIL/uL (4.5-6.0); RED CELL DISTRIBUTION WIDTH 21.6 % (11.5-15.0); WHITE BLOOD COUNT (AUTO) 6.6 K/uL (4.3-11.0)
[2025-01-21] MEDS: hydrALAZINE HCL 25 MG TABLET GT SCH (17:00)
[2025-01-21] MEDS: SUCRALFATE 1 G TABLET GT SCH (17:24)
[2025-01-21 17:29] VITALS: BP 118/52
[2025-01-21] MEDS: CARVEDILOL 12.5 MG TABLET GT SCH (17:29)
[2025-01-21 17:43] LABS: ALANINE AMINOTRANSFERASE < 6 U/L (12-78); ALBUMIN 3.3 g/dL (3.4-5.0); ALKALINE PHOSPHATASE 64 U/L (46-116); ASPARTATE AMINOTRANSFERASE 15 U/L (15-37); BILIRUBIN,TOTAL 0.4 mg/dL (0.2-1.0); CALCIUM, SERUM 8.5 mg/dL (8.5-10.1); CARBON DIOXIDE 28 mmol/L (21-32); CHLORIDE 103 mmol/L (98-107); CREATININE 4.4 mg/dL (0.6-1.3); GLUCOSE 103 mg/dL (74-106); MAGNESIUM 2.1 mg/dL (1.8-2.4); PHOSPHORUS 1.4 mg/dL (2.5-4.9); POTASSIUM 3.2 mmol/L (3.5-5.1); SODIUM SERUM 138 mmol/L (136-145); TOTAL PROTEIN, SERUM 6.8 g/dL (6.4-8.2); UREA NITROGEN, BLOOD 21 mg/dL (7-18)
[2025-01-21] MEDS ORDERED: ATORVASTATIN 40 MG TABLET GT SCH (22:00)
[2025-01-22] MEDS ORDERED: PANTOPRAZOLE 40 MG/PACK PACK GT SCH (09:00)
[2025-01-22] MEDS ORDERED: ASPIRIN 81 MG TAB.CHEW GT SCH (09:00)
== END 2025-01-21 18:02 | DRG 426 ==
LOC: ER 18:12 → TELE1 20:59
PROC: 5A1D70Z Performance of Urinary Filtration, Intermittent, Less than 6 Hours Per Day (ICD-10-PCS; principal; 2025-01-20)
DX: E87.1 Hypo-osmolality and hyponatremia (principal); G93.41 Metabolic encephalopathy; I21.A1 Myocardial infarction type 2; D68.59 Other primary thrombophilia; F05 Delirium due to known physiological condition; I13.2 Hypertensive heart and chronic kidney disease with heart failure and with stage 5 chronic kidney disease, or end stage renal disease; E44.1 Mild protein-calorie malnutrition; N18.6 End stage renal disease; E11.22 Type 2 diabetes mellitus with diabetic chronic kidney disease; F29 Unspecified psychosis not due to a substance or known physiological condition; E88.09 Other disorders of plasma-protein metabolism, not elsewhere classified; G81.91 Hemiplegia, unspecified affecting right dominant side; I50.42 Chronic combined systolic (congestive) and diastolic (congestive) heart failure; I48.91 Unspecified atrial fibrillation; I25.2 Old myocardial infarction; Z87.19 Personal history of other diseases of the digestive system; Z79.82 Long term (current) use of aspirin; Z79.4 Long term (current) use of insulin; Z79.899 Other long term (current) drug therapy; E78.5 Hyperlipidemia, unspecified; D64.9 Anemia, unspecified; F20.9 Schizophrenia, unspecified; R13.10 Dysphagia, unspecified; Z99.2 Dependence on renal dialysis; Z91.158 Patient's noncompliance with renal dialysis for other reason; Z74.01 Bed confinement status; M89.8X9 Other specified disorders of bone, unspecified site; Z93.1 Gastrostomy status
CPT/HCPCS: 36415; 71045-TC; 80048-TC; 80053-TC; 80076-TC; 82962-TC; 83735-TC; 84100-TC; 84484-TC; 85025-TC; 87081-TC; A6403; G0378; J1815; J7030

== ENCOUNTER 2025-01-26 15:57 | Inpatient (IN) | payer OTHER ==
[~2025-01-26] VITALS: Ht 162.6 cm; Wt 47.9 kg
[~2025-01-26 15:57] MED LIST changes: -FOLI0.8T2 GT; -NUT.237L67 PO
[2025-01-26 17:03] LABS: PLATELET COUNT (AUTO) 430 K/uL (150-450); RED BLOOD CELL COUNT(AUTO) 2.77 MIL/uL (4.5-6.0); RED CELL DISTRIBUTION WIDTH 20.1 % (11.5-15.0); WHITE BLOOD COUNT (AUTO) 13.2 K/uL (4.3-11.0)
[2025-01-26 17:10] LABS: CALCIUM, SERUM 10.1 mg/dL (8.5-10.1); SODIUM SERUM 130.0 mmol/L (136-145)
[2025-01-26 17:18] LABS: INR 0.88 (0.91-1.10)
[2025-01-26 17:22] LABS: CREATININE 15.5 mg/dL (0.6-1.3); UREA NITROGEN, BLOOD 127.0 mg/dL (7-18)
[2025-01-26] MEDS ORDERED: FOLI0.8T2 GT (17:27)
[2025-01-26] MEDS ORDERED: HEPA50007 SQ (17:27)
[2025-01-26] MEDS ORDERED: GLUC1KIT IJ (17:27)
[2025-01-26] MEDS ORDERED: TICA90TA GT (17:27)
[2025-01-26] MEDS ORDERED: QUETIAPINE FUMARATE 25 MG TABLET GT PRN (19:30)
[2025-01-26] MEDS ORDERED: ONDANSETRON HCL/PF 4 MG/2 ML VIAL IVP PRN (19:30)
[2025-01-26] MEDS ORDERED: ACETAMINOPHEN 325 MG TABLET PO PRN (19:30)
[2025-01-26] MEDS: CARVEDILOL 12.5 MG TABLET GT SCH (21:09)
[2025-01-26] MEDS: SUCRALFATE 1 G TABLET GT SCH (21:10)
[2025-01-26] MEDS: TICAGRELOR 90 MG TABLET GT SCH (21:10)
[2025-01-26] MEDS: ATORVASTATIN 40 MG TABLET PO SCH (21:10)
[2025-01-26] MEDS: BLOOD SUGAR DIAGNOSTIC 1 EACH STRIP IN SCH (22:16)
[2025-01-27] MEDS: GLUCERNA 1.2 1,000 ML BOTTLE NG PRN (06:27)
[2025-01-27 08:00] VITALS: BP 130/80; TEMP 97.8; O2SAT 97
[2025-01-27] MEDS: NEPRO 1,000 ML BOTTLE GT PRN (10:32)
[2025-01-27] MEDS: PANTOPRAZOLE 40 MG/PACK PACK GT SCH ×2 (10:37→21:00)
[2025-01-27] MEDS: VIT B CMPLX 3/FA/VIT C/BIOTIN 1 TAB TABLET PO SCH (10:38)
[2025-01-27] MEDS: CHOLECALCIFEROL 1,000 UNIT TABLET (VIT D3) PO SCH (10:39)
[2025-01-27] MEDS: ASPIRIN 81 MG TAB.CHEW GT SCH (10:39)
[2025-01-27] MEDS: PROSOURCE / PROSTAT (PYXIS) 30 ML UDC GT SCH (10:40)
[2025-01-27 12:00] VITALS: BP 110/74; TEMP 97.7; O2SAT 97
[2025-01-27 16:00] VITALS: BP 114/79; TEMP 97.5; O2SAT 97
[2025-01-27 17:00] VITALS: BP 114/79; TEMP 97.5; O2SAT 97
[2025-01-27 20:51] LABS: PLATELET COUNT (AUTO) 432 K/uL (150-450); RED BLOOD CELL COUNT(AUTO) 2.55 MIL/uL (4.5-6.0); RED CELL DISTRIBUTION WIDTH 19.4 % (11.5-15.0); WHITE BLOOD COUNT (AUTO) 14.2 K/uL (4.3-11.0)
[2025-01-27 21:00] VITALS: BP 118/79; TEMP 97.9; O2SAT 98
[2025-01-27 21:18] LABS: CALCIUM, SERUM 9.5 mg/dL (8.5-10.1); PHOSPHORUS 3.3 mg/dL (2.5-4.9); SODIUM SERUM 132.0 mmol/L (136-145)
[2025-01-27 21:30] LABS: CREATININE 13.3 mg/dL (0.6-1.3); UREA NITROGEN, BLOOD 130.0 mg/dL (7-18)
[2025-01-27] MEDS: INSULIN REGULAR, HUMAN 100 UNIT/ML 3 ML VIAL SQ PRN (22:28)
[2025-01-28] VITALS (10 sets, daily range): BP systolic 76–110; BP diastolic 56–77; TEMP 97–98.1; O2SAT 97–100
[2025-01-28 07:15] LABS: ASPARTATE AMINOTRANSFERASE 25.0 U/L (15-37); CALCIUM, SERUM 9.5 mg/dL (8.5-10.1); PHOSPHORUS 3.0 mg/dL (2.5-4.9); SODIUM SERUM 136.0 mmol/L (136-145); TOTAL PROTEIN, SERUM 6.5 g/dL (6.4-8.2)
[2025-01-28 07:22] LABS: UREA NITROGEN, BLOOD 147.0 mg/dL (7-18)
[2025-01-28 07:23] LABS: CREATININE 14.2 mg/dL (0.6-1.3)
[2025-01-28 07:42] LABS: PLATELET COUNT (AUTO) 435 K/uL (150-450); RED BLOOD CELL COUNT(AUTO) 2.17 MIL/uL (4.5-6.0); RED CELL DISTRIBUTION WIDTH 18.9 % (11.5-15.0); WHITE BLOOD COUNT (AUTO) 13.6 K/uL (4.3-11.0)
[2025-01-28 08:24] LABS: LYMPHOCYTES % (MANUAL) 8 % (16-48); MONOCYTES % (MANUAL) 3 % (0-11.0); NEUTROPHILS % (MANUAL) 89 (42-76); PLATELET ESTIMATE ADEQUATE
[2025-01-28] MEDS: PANTOPRAZOLE 40 MG VIAL IV SCH (11:42)
[2025-01-28] MEDS: METRONIDAZOLE 500MG/ NS 100ML 500 MG in PREMIX 1 EA IV SCH (12:04)
[2025-01-28 12:55] LABS: CALCIUM, SERUM 9.8 mg/dL (8.5-10.1); SODIUM SERUM 136.0 mmol/L (136-145)
[2025-01-28 12:56] LABS: ASPARTATE AMINOTRANSFERASE 26.0 U/L (15-37); PHOSPHORUS 3.6 mg/dL (2.5-4.9); TOTAL PROTEIN, SERUM 6.3 g/dL (6.4-8.2)
[2025-01-28] MEDS: CIPROFLOXACIN IV RTU 400 MG in PREMIX 1 EA IV SCH (13:21)
[2025-01-28 13:59] LABS: CREATININE 14.6 mg/dL (0.6-1.3); UREA NITROGEN, BLOOD 97.0 mg/dL (7-18)
[2025-01-28] MEDS: EPOETIN ALFA (10,000 UNIT) 10,000 UNIT/ML VIAL SQ SCH (14:00)
[2025-01-29] VITALS (13 sets, daily range): BP systolic 85–137; BP diastolic 63–86; TEMP 97.3–97.9; O2SAT 97–100
[2025-01-29] MEDS ORDERED: ALBUMIN 25% 100 ML IV ONE (04:25)
[2025-01-29] MEDS: PANTOPRAZOLE 40 MG/PACK PACK GT SCH (08:55)
[2025-01-29 09:37] LABS: PLATELET COUNT (AUTO) 315 K/uL (150-450); RED BLOOD CELL COUNT(AUTO) 2.04 MIL/uL (4.5-6.0); RED CELL DISTRIBUTION WIDTH 21.0 % (11.5-15.0); WHITE BLOOD COUNT (AUTO) 20.9 K/uL (4.3-11.0)
[2025-01-29 09:49] LABS: ASPARTATE AMINOTRANSFERASE 32.0 U/L (15-37); CALCIUM, SERUM 9.3 mg/dL (8.5-10.1); PHOSPHORUS 3.9 mg/dL (2.5-4.9); SODIUM SERUM 138.0 mmol/L (136-145); TOTAL PROTEIN, SERUM 5.9 g/dL (6.4-8.2)
[2025-01-29 10:22] LABS: CREATININE 14.0 mg/dL (0.6-1.3); UREA NITROGEN, BLOOD 194.0 mg/dL (7-18)
[2025-01-29 14:41] LABS: MONOCYTES % (MANUAL) 10 % (0-11.0); NEUTROPHILS % (MANUAL) 79 (42-76)
[2025-01-29 14:42] LABS: LYMPHOCYTES % (MANUAL) 11 % (16-48); PLATELET ESTIMATE ADEQUATE
[2025-01-29] MEDS: PANTOPRAZOLE 40 MG VIAL IV SCH (20:03)
[2025-01-30] VITALS (22 sets, daily range): BP systolic 88–150; BP diastolic 59–84; TEMP 97.3–97.9; O2SAT 98–100
[2025-01-30] MEDS: CIPROFLOXACIN IV RTU 400 MG in PREMIX 1 EA IV SCH (01:37)
[2025-01-30 07:55] LABS: CALCIUM, SERUM 9.5 mg/dL (8.5-10.1); PHOSPHORUS 4.5 mg/dL (2.5-4.9); SODIUM SERUM 136.0 mmol/L (136-145)
[2025-01-30 07:57] LABS: PLATELET COUNT (AUTO) 300 K/uL (150-450); RED BLOOD CELL COUNT(AUTO) 2.92 MIL/uL (4.5-6.0); RED CELL DISTRIBUTION WIDTH 18.0 % (11.5-15.0); WHITE BLOOD COUNT (AUTO) 24.7 K/uL (4.3-11.0)
[2025-01-30 08:02] LABS: CREATININE 14.1 mg/dL (0.6-1.3); UREA NITROGEN, BLOOD 196.0 mg/dL (7-18)
[2025-01-30] MEDS: OLANZAPINE 10 MG VIAL IM PRN (16:04)
[2025-01-30] MEDS: ALBUMIN 25% 25 GM in PREMIX 1 EA IV PRN (18:31)
[2025-01-30] MEDS: Z GUARD REMEDY 4 OZ OINT TP SCH (21:27)
[2025-01-30] MEDS: CLOTRIMAZOLE 1% 15 GM TUBE TP SCH (21:27)
[2025-01-31] VITALS (27 sets, daily range): BP systolic 78–147; BP diastolic 48–78; TEMP 97.3–97.9; O2SAT 94–100
[2025-01-31 04:37] LABS: PLATELET COUNT (AUTO) 261 K/uL (150-450); RED BLOOD CELL COUNT(AUTO) 2.29 MIL/uL (4.5-6.0); RED CELL DISTRIBUTION WIDTH 18.3 % (11.5-15.0); WHITE BLOOD COUNT (AUTO) 17.4 K/uL (4.3-11.0)
[2025-01-31 05:18] LABS: ASPARTATE AMINOTRANSFERASE 39.0 U/L (15-37); CALCIUM, SERUM 8.8 mg/dL (8.5-10.1); PHOSPHORUS 3.5 mg/dL (2.5-4.9); SODIUM SERUM 140.0 mmol/L (136-145); TOTAL PROTEIN, SERUM 5.6 g/dL (6.4-8.2)
[2025-01-31 05:33] LABS: CREATININE 11.5 mg/dL (0.6-1.3); UREA NITROGEN, BLOOD 153.0 mg/dL (7-18)
[2025-01-31] MEDS: OLANZAPINE 10 MG VIAL IM PRN (14:18)
[2025-01-31] MEDS: DEXTROSE 50%-WATER 50 ML DISP.SYRIN IV PRN (23:00)
[2025-02-01] VITALS (7 sets, daily range): BP systolic 99–119; BP diastolic 54–74; TEMP 97–98.1; O2SAT 99–100
[2025-02-01 12:54] LABS: CALCIUM, SERUM 9.3 mg/dL (8.5-10.1); PHOSPHORUS 4.0 mg/dL (2.5-4.9); SODIUM SERUM 139.0 mmol/L (136-145)
[2025-02-01 12:57] LABS: CREATININE 11.1 mg/dL (0.6-1.3); PLATELET COUNT (AUTO) 270 K/uL (150-450); RED BLOOD CELL COUNT(AUTO) 2.71 MIL/uL (4.5-6.0); RED CELL DISTRIBUTION WIDTH 19.8 % (11.5-15.0); UREA NITROGEN, BLOOD 142.0 mg/dL (7-18); WHITE BLOOD COUNT (AUTO) 11.7 K/uL (4.3-11.0)
[2025-02-02] VITALS: BP 124/77; TEMP 98.2; O2SAT 100
[2025-02-02 00:22] VITALS: BP 124/77; TEMP 98.2; O2SAT 100
[2025-02-02 04:00] VITALS: BP 126/74; TEMP 98.2; O2SAT 100
[2025-02-02 06:46] LABS: PLATELET COUNT (AUTO) 303 K/uL (150-450); RED BLOOD CELL COUNT(AUTO) 2.70 MIL/uL (4.5-6.0); RED CELL DISTRIBUTION WIDTH 21.1 % (11.5-15.0); WHITE BLOOD COUNT (AUTO) 10.6 K/uL (4.3-11.0)
[2025-02-02 07:08] LABS: CALCIUM, SERUM 9.3 mg/dL (8.5-10.1); PHOSPHORUS 3.9 mg/dL (2.5-4.9); SODIUM SERUM 140.0 mmol/L (136-145)
[2025-02-02 07:44] LABS: CREATININE 11.4 mg/dL (0.6-1.3); UREA NITROGEN, BLOOD 143.0 mg/dL (7-18)
[2025-02-02 08:00] VITALS: BP 133/78; TEMP 98.1; O2SAT 99
[2025-02-02] MEDS: PANTOPRAZOLE 40 MG/PACK PACK GT SCH (09:00)
[2025-02-02] MEDS ORDERED: ROPIVACAINE HCL 0.5% 5 MG/ML 30ML VIAL ONE (10:55)
[2025-02-02] MEDS ORDERED: MIDAZOLAM HCL 2 MG/2ML VIAL ONE (10:56)
[2025-02-02] MEDS ORDERED: FENTANYL PF 100MCG/2ML AMPUL ONE (10:56)
[2025-02-02] MEDS ORDERED: LIDOCAINE 1% INJ 50 ML MDV IJ ONE (11:19)
[2025-02-02] MEDS ORDERED: ANESTHESIA TRAY IN PYXIS 1 EA TRAY MC ONE (11:19)
[2025-02-02] MEDS ORDERED: HEPARIN SODIUM, PORCINE 1,000 UNIT/ML VIAL ONE (11:19)
[2025-02-02 16:00] VITALS: BP 157/73; TEMP 97.9; O2SAT 96
[2025-02-02] MEDS: NEPRO 1,000 ML BOTTLE GT PRN (19:40)
[2025-02-02 20:00] VITALS: BP 146/87; TEMP 97.9; O2SAT 100
[2025-02-03] VITALS: BP 143/81; TEMP 97.9; O2SAT 100
[2025-02-03 04:00] VITALS: BP 131/82; TEMP 97.8; O2SAT 100
[2025-02-03 05:00] VITALS: BP 131/82; TEMP 97.8; O2SAT 100
[2025-02-03 07:00] VITALS: BP 149/82; TEMP 98.1; O2SAT 100
[2025-02-03 07:18] LABS: PLATELET COUNT (AUTO) 319 K/uL (150-450); RED BLOOD CELL COUNT(AUTO) 2.85 MIL/uL (4.5-6.0); RED CELL DISTRIBUTION WIDTH 21.0 % (11.5-15.0); WHITE BLOOD COUNT (AUTO) 7.2 K/uL (4.3-11.0)
[2025-02-03 08:21] LABS: ASPARTATE AMINOTRANSFERASE 23.0 U/L (15-37); CALCIUM, SERUM 8.6 mg/dL (8.5-10.1); CREATININE 5.5 mg/dL (0.6-1.3); PHOSPHORUS 2.4 mg/dL (2.5-4.9); SODIUM SERUM 140.0 mmol/L (136-145); TOTAL PROTEIN, SERUM 5.6 g/dL (6.4-8.2); UREA NITROGEN, BLOOD 44.0 mg/dL (7-18)
[2025-02-03 08:24] LABS: OCCULT BLOOD STOOL POSITIVE (NEGATIVE)
[2025-02-03 09:20] LABS: EOSINOPHILS % (MANUAL) 2 % (0-4); LYMPHOCYTES % (MANUAL) 15 % (16-48); MONOCYTES % (MANUAL) 9 % (0-11.0); NEUTROPHILS % (MANUAL) 74 (42-76); PLATELET ESTIMATE ADEQUATE
[2025-02-03] MEDS: POTASSIUM CHLORIDE 20 MEQ POWDER PACKET GT ONE (10:10)
[2025-02-03 16:00] VITALS: BP 142/87; TEMP 98.4; O2SAT 100
[2025-02-03 20:00] VITALS: BP 128/88; TEMP 98.1; O2SAT 100
[2025-02-04] VITALS: BP 158/81; TEMP 98.8; O2SAT 100
[2025-02-04 05:00] VITALS: BP 139/76; TEMP 98.8; O2SAT 100
[2025-02-04 06:48] LABS: PLATELET COUNT (AUTO) 322 K/uL (150-450); RED BLOOD CELL COUNT(AUTO) 2.94 MIL/uL (4.5-6.0); RED CELL DISTRIBUTION WIDTH 21.9 % (11.5-15.0); WHITE BLOOD COUNT (AUTO) 8.2 K/uL (4.3-11.0)
[2025-02-04 07:36] LABS: ASPARTATE AMINOTRANSFERASE 21.0 U/L (15-37); CALCIUM, SERUM 9.0 mg/dL (8.5-10.1); CREATININE 6.9 mg/dL (0.6-1.3); PHOSPHORUS 2.0 mg/dL (2.5-4.9); SODIUM SERUM 140.0 mmol/L (136-145); TOTAL PROTEIN, SERUM 5.6 g/dL (6.4-8.2); UREA NITROGEN, BLOOD 55.0 mg/dL (7-18)
[2025-02-04 08:23] VITALS: BP 152/82; TEMP 98.2; O2SAT 100
[2025-02-04 11:06] LABS: EOSINOPHILS % (MANUAL) 5 % (0-4); LYMPHOCYTES % (MANUAL) 19 % (16-48); MONOCYTES % (MANUAL) 16 % (0-11.0); NEUTROPHILS % (MANUAL) 60 (42-76); PLATELET ESTIMATE ADEQUATE
[2025-02-04 12:01] VITALS: BP 155/81; TEMP 98.2; O2SAT 100
[2025-02-04] MEDS ORDERED: HEMOSTATIC MATRIX 8 ML 1 EACH PAD MC ONE (13:24)
[2025-02-04] MEDS ORDERED: HEPARIN SODIUM, PORCINE 1,000 UNIT/ML VIAL ONE (13:24)
[2025-02-04] MEDS ORDERED: LIDOCAINE 1% INJ 50 ML MDV IJ ONE (13:24)
[2025-02-04] MEDS ORDERED: CELLULOSE,OXIDIZED 1 EACH EACH MC ONE ×2 (13:24→15:04)
[2025-02-04] MEDS ORDERED: ROPIVACAINE HCL 0.5% 5 MG/ML 30ML VIAL ONE (15:08)
[2025-02-04 16:20] VITALS: BP 134/80; TEMP 98.5; O2SAT 100
[2025-02-04 20:00] VITALS: BP 134/85; TEMP 97.3; O2SAT 100
[2025-02-04] MEDS: ANCEF 1 GM/50 ML D5W IV SCH (21:37)
[2025-02-05] VITALS: BP 115/65; TEMP 97.5; O2SAT 100
[2025-02-05 04:00] VITALS: BP 135/80; TEMP 97.5; O2SAT 100
[2025-02-05 06:53] LABS: PLATELET COUNT (AUTO) 384 K/uL (150-450); RED BLOOD CELL COUNT(AUTO) 3.33 MIL/uL (4.5-6.0); RED CELL DISTRIBUTION WIDTH 21.9 % (11.5-15.0); WHITE BLOOD COUNT (AUTO) 10.0 K/uL (4.3-11.0)
[2025-02-05 06:55] LABS: CALCIUM, SERUM 9.0 mg/dL (8.5-10.1); SODIUM SERUM 137.0 mmol/L (136-145); UREA NITROGEN, BLOOD 60.0 mg/dL (7-18)
[2025-02-05 07:53] LABS: CREATININE 8.5 mg/dL (0.6-1.3)
[2025-02-05 08:20] VITALS: BP 131/82; TEMP 98.4; O2SAT 100
[2025-02-05 14:40] VITALS: BP 131/74; TEMP 98.3; O2SAT 100
[2025-02-05 16:36] VITALS: BP 102/70; O2SAT 100
== END 2025-02-05 16:00 | DRG 182 ==
LOC: ER 15:57 → TELE1 20:18 → ICU 01-30 11:26 → TELE 01-31 21:15
PROVIDERS: ADMIT Nurse Practitioner Acute Care
PROC: 5A1D70Z Performance of Urinary Filtration, Intermittent, Less than 6 Hours Per Day (ICD-10-PCS; principal; 2025-01-26)
PROC: 30233N1 Transfusion of Nonautologous Red Blood Cells into Peripheral Vein, Percutaneous Approach (ICD-10-PCS; 2025-01-28)
PROC: 0DJ08ZZ Inspection of Upper Intestinal Tract, Via Natural or Artificial Opening Endoscopic (ICD-10-PCS; 2025-01-30)
PROC: 05HM33Z Insertion of Infusion Device into Right Internal Jugular Vein, Percutaneous Approach (ICD-10-PCS; 2025-02-02)
PROC: 0JH63XZ Insertion of Tunneled Vascular Access Device into Chest Subcutaneous Tissue and Fascia, Percutaneous Approach (ICD-10-PCS; 2025-02-02)
PROC: B513YZA Fluoroscopy of Right Jugular Veins using Other Contrast, Guidance (ICD-10-PCS; 2025-02-02)
PROC: 03LY3ZZ Occlusion of Upper Artery, Percutaneous Approach (ICD-10-PCS; 2025-02-04)
PROC: 05L Upper Veins, Occlusion (ICD-10-PCS; 2025-02-04)
PROC: 05WY3JZ Revision of Synthetic Substitute in Upper Vein, Percutaneous Approach (ICD-10-PCS; 2025-02-04)
DX: T82.590A Other mechanical complication of surgically created arteriovenous fistula, initial encounter (principal); G93.41 Metabolic encephalopathy; K22.11 Ulcer of esophagus with bleeding; D68.59 Other primary thrombophilia; I13.2 Hypertensive heart and chronic kidney disease with heart failure and with stage 5 chronic kidney disease, or end stage renal disease; E44.1 Mild protein-calorie malnutrition; E87.1 Hypo-osmolality and hyponatremia; N18.6 End stage renal disease; D63.1 Anemia in chronic kidney disease; E11.22 Type 2 diabetes mellitus with diabetic chronic kidney disease; E88.09 Other disorders of plasma-protein metabolism, not elsewhere classified; F29 Unspecified psychosis not due to a substance or known physiological condition; I50.42 Chronic combined systolic (congestive) and diastolic (congestive) heart failure; K29.70 Gastritis, unspecified, without bleeding; K29.80 Duodenitis without bleeding; I69.351 Hemiplegia and hemiparesis following cerebral infarction affecting right dominant side; I48.91 Unspecified atrial fibrillation; I25.2 Old myocardial infarction; Z79.01 Long term (current) use of anticoagulants; Z79.82 Long term (current) use of aspirin; Z79.899 Other long term (current) drug therapy; Z79.4 Long term (current) use of insulin; D72.829 Elevated white blood cell count, unspecified; Z91.158 Patient's noncompliance with renal dialysis for other reason; Z99.2 Dependence on renal dialysis; Z74.01 Bed confinement status; E78.5 Hyperlipidemia, unspecified; Z87.19 Personal history of other diseases of the digestive system; M89.8X9 Other specified disorders of bone, unspecified site; Y83.2 Surgical operation with anastomosis, bypass or graft as the cause of abnormal reaction of the patient, or of later complication, without mention of misadventure at the time of the procedure; Y92.129 Unspecified place in nursing home as the place of occurrence of the external cause
CPT/HCPCS: 36415; 71045-TC; 73020; 80048-TC; 80053-TC; 82272-TC; 82962-TC; 83735-TC; 84100-TC; 85025-TC; 85027-TC; 85730-TC; 86850-TC; 87081-TC; 90935-TC; 93971-TC; A4216; A4223; A6209; A6223; A6403; C1750; C1757; C1768; C1769; C1894; G0378; J0690; J0744; J0885; J1644; J1815; J2250; J2470; J2704; J2795; J3010; J3490; J7030; J7040; J7050; J7060; P9016; P9047

== ENCOUNTER 2025-02-07 19:37 | Inpatient (IN) | payer OTHER ==
[~2025-02-07] VITALS: Ht 165.1 cm; Wt 51.7 kg
[~2025-02-07 19:37] MED LIST changes: +FOLI0.8T2 GT; +GLUC1KIT IJ; +HEPA50007 SQ; +TICA90TA GT
[2025-02-07 20:01] LABS: PLATELET COUNT (AUTO) 416 K/uL (150-450); RED BLOOD CELL COUNT(AUTO) 3.07 MIL/uL (4.5-6.0); RED CELL DISTRIBUTION WIDTH 21.7 % (11.5-15.0); WHITE BLOOD COUNT (AUTO) 8.7 K/uL (4.3-11.0)
[2025-02-07 20:07] LABS: CALCIUM, SERUM 8.9 mg/dL (8.5-10.1); CREATININE 6.9 mg/dL (0.6-1.3); SODIUM SERUM 135.0 mmol/L (136-145); UREA NITROGEN, BLOOD 61.0 mg/dL (7-18)
[2025-02-07 20:14] LABS: INR 0.94 (0.91-1.10)
[2025-02-07] MEDS ORDERED: ACETAMINOPHEN 325 MG TABLET PO PRN (22:00)
[2025-02-07] MEDS ORDERED: ONDANSETRON HCL/PF 4 MG/2 ML VIAL IVP PRN (22:00)
[2025-02-07 22:30] VITALS: BP 149/77; TEMP 97.9; O2SAT 100
[2025-02-07] MEDS ORDERED: LORAZEPAM 1 MG TABLET GT SCH (22:30)
[2025-02-07] MEDS ORDERED: ONDANSETRON 4 MG TAB.RAPDIS SL PRN (22:30)
[2025-02-07] MEDS ORDERED: QUETIAPINE FUMARATE 25 MG TABLET GT PRN (22:30)
[2025-02-07] MEDS ORDERED: METOCLOPRAMIDE HCL 10 MG TABLET GT PRN (22:30)
[2025-02-07] MEDS ORDERED: DEXTROSE 50%-WATER 50 ML DISP.SYRIN IV PRN (22:30)
[2025-02-07] MEDS ORDERED: GLUCAGON,HUMAN RECOMBINANT 1 MG/VIAL VIAL IM PRN (22:30)
[2025-02-07] MEDS: POTASSIUM CHLORIDE 20 MEQ TAB.PRT.SR PO ONE (23:04)
[2025-02-08] MEDS: NEPRO 1,000 ML BOTTLE GT PRN ×2 (00:09→21:00)
[2025-02-08] MEDS: INSULIN REGULAR, HUMAN 100 UNIT/ML 3 ML VIAL SQ PRN (00:14)
[2025-02-08] MEDS: BLOOD SUGAR DIAGNOSTIC 1 EACH STRIP IN SCH (00:15)
[2025-02-08 04:00] VITALS: BP 148/67; TEMP 97.7; O2SAT 100
[2025-02-08] MEDS ORDERED: ACETAMINOPHEN 650 MG/20.3 ML UDC GT PRN (06:30)
[2025-02-08 08:00] VITALS: BP 154/82; TEMP 98.2; O2SAT 100
[2025-02-08] MEDS: ASPIRIN 81 MG TAB.CHEW GT SCH (08:45)
[2025-02-08] MEDS: SUCRALFATE 1 G TABLET GT SCH (08:46)
[2025-02-08] MEDS: CARVEDILOL 12.5 MG TABLET GT SCH (08:46)
[2025-02-08] MEDS: PANTOPRAZOLE 40 MG/PACK PACK GT SCH (08:46)
[2025-02-08] MEDS: TICAGRELOR 90 MG TABLET GT SCH (08:46)
[2025-02-08] MEDS: CHOLECALCIFEROL 1,000 UNIT TABLET (VIT D3) GT SCH (08:47)
[2025-02-08] MEDS: VIT B CMPLX 3/FA/VIT C/BIOTIN 1 TAB TABLET GT SCH (08:47)
[2025-02-08] MEDS: FOLIC ACID 1 MG TABLET GT SCH (08:47)
[2025-02-08] MEDS ORDERED: HEPARIN SODIUM, PORCINE 5000 UNITS/1 ML VIAL SQ SCH (09:00)
[2025-02-08] MEDS: ENOXAPARIN SODIUM 30 MG/0.3 ML DISP.SYRIN SQ SCH (10:05)
[2025-02-08] MEDS: PROSOURCE / PROSTAT (PYXIS) 30 ML UDC GT SCH (10:06)
[2025-02-08] MEDS: POTASSIUM CHLORIDE 20 MEQ POWDER PACKET GT ONE (11:06)
[2025-02-08 11:45] LABS: PLATELET COUNT (AUTO) 445 K/uL (150-450); RED BLOOD CELL COUNT(AUTO) 3.25 MIL/uL (4.5-6.0); RED CELL DISTRIBUTION WIDTH 21.3 % (11.5-15.0); WHITE BLOOD COUNT (AUTO) 8.4 K/uL (4.3-11.0)
[2025-02-08 12:00] VITALS: BP 154/82; TEMP 98.2; O2SAT 100
[2025-02-08 12:02] LABS: CALCIUM, SERUM 9.2 mg/dL (8.5-10.1); PHOSPHORUS 1.4 mg/dL (2.5-4.9); SODIUM SERUM 135.0 mmol/L (136-145); UREA NITROGEN, BLOOD 70.0 mg/dL (7-18)
[2025-02-08 13:04] LABS: CREATININE 8.0 mg/dL (0.6-1.3)
[2025-02-08] MEDS: EPOETIN ALFA (4000 UNIT) 4,000 UNIT/ML VIAL SQ SCH (15:15)
[2025-02-08 16:00] VITALS: BP 131/66; TEMP 98.4; O2SAT 97
[2025-02-08 20:00] VITALS: BP 146/76; TEMP 98.1; O2SAT 100
[2025-02-08] MEDS: ATORVASTATIN 40 MG TABLET GT SCH (21:39)
[2025-02-09 04:00] VITALS: BP 157/80; TEMP 98.1; O2SAT 100
[2025-02-09 06:47] LABS: PLATELET COUNT (AUTO) 476 K/uL (150-450); RED BLOOD CELL COUNT(AUTO) 3.09 MIL/uL (4.5-6.0); RED CELL DISTRIBUTION WIDTH 22.0 % (11.5-15.0); WHITE BLOOD COUNT (AUTO) 8.7 K/uL (4.3-11.0)
[2025-02-09 07:18] LABS: CALCIUM, SERUM 8.9 mg/dL (8.5-10.1); CREATININE 4.2 mg/dL (0.6-1.3); SODIUM SERUM 135.0 mmol/L (136-145); UREA NITROGEN, BLOOD 33.0 mg/dL (7-18)
[2025-02-09 07:47] LABS: PHOSPHORUS 0.8 mg/dL (2.5-4.9)
[2025-02-09 08:04] VITALS: BP 144/76; TEMP 99; O2SAT 100
[2025-02-09] MEDS: Sodium Phosphate 15 MMOL in IV NS 0.9% 245 ML IV SCH (11:02)
[2025-02-09 12:00] VITALS: BP 144/76; TEMP 99; O2SAT 100
[2025-02-09 16:00] VITALS: BP 134/70; TEMP 98.1; O2SAT 100
[2025-02-09 20:00] VITALS: BP 113/56; TEMP 98.1; O2SAT 100
[2025-02-10 04:00] VITALS: BP 152/40; TEMP 97.8; O2SAT 98
[2025-02-10 08:00] VITALS: BP 142/66; TEMP 98.1; O2SAT 100
[2025-02-10 16:00] VITALS: BP 125/99; TEMP 98.1; O2SAT 100
[2025-02-10 20:00] VITALS: BP 133/74; TEMP 98.4; O2SAT 100
[2025-02-11 04:00] VITALS: BP 134/68; TEMP 98.1; O2SAT 100
== END 2025-02-11 14:50 | DRG 425 ==
LOC: ER 19:44 → MEDSG1 21:56
PROVIDERS: ADMIT Nurse Practitioner Family; ATTEND Internal Medicine
PROC: 5A1D70Z Performance of Urinary Filtration, Intermittent, Less than 6 Hours Per Day (ICD-10-PCS; principal; 2025-02-08)
DX: E87.70 Fluid overload, unspecified (principal); I13.2 Hypertensive heart and chronic kidney disease with heart failure and with stage 5 chronic kidney disease, or end stage renal disease; D68.59 Other primary thrombophilia; E11.22 Type 2 diabetes mellitus with diabetic chronic kidney disease; N18.6 End stage renal disease; E87.1 Hypo-osmolality and hyponatremia; D64.9 Anemia, unspecified; Z79.01 Long term (current) use of anticoagulants; I50.9 Heart failure, unspecified; E87.6 Hypokalemia; I48.91 Unspecified atrial fibrillation; E78.5 Hyperlipidemia, unspecified; I25.2 Old myocardial infarction; R13.10 Dysphagia, unspecified; Z93.1 Gastrostomy status; Z86.73 Personal history of transient ischemic attack (TIA), and cerebral infarction without residual deficits; K21.9 Gastro-esophageal reflux disease without esophagitis; Z91.158 Patient's noncompliance with renal dialysis for other reason; Z79.82 Long term (current) use of aspirin; Z79.4 Long term (current) use of insulin; Z79.899 Other long term (current) drug therapy; Z99.2 Dependence on renal dialysis; M89.8X9 Other specified disorders of bone, unspecified site
CPT/HCPCS: 36415; 71045-TC; 80048-TC; 82962-TC; 83735-TC; 84100-TC; 85025-TC; 85730-TC; 90935-TC; A4223; A6254; A9563; G0378; J0885; J1644; J1650; J1815; J3490; J7030; J7040; J7050

== ENCOUNTER 2025-02-19 00:16 | Inpatient (IN) | payer OTHER ==
[~2025-02-19] VITALS: Ht 167.6 cm; Wt 54.9 kg
[2025-02-19] VITALS (12 sets, daily range): BP systolic 128–176; BP diastolic 65–93; TEMP 97.6–98.2; O2SAT 99–100
[2025-02-19 01:21] LABS: PLATELET COUNT (AUTO) 450 K/uL (150-450); RED BLOOD CELL COUNT(AUTO) 2.37 MIL/uL (4.5-6.0); RED CELL DISTRIBUTION WIDTH 18.0 % (11.5-15.0); WHITE BLOOD COUNT (AUTO) 6.2 K/uL (4.3-11.0)
[2025-02-19 01:27] LABS: CALCIUM, SERUM 9.1 mg/dL (8.5-10.1); CREATININE 6.9 mg/dL (0.6-1.3); SODIUM SERUM 132.0 mmol/L (136-145)
[2025-02-19 01:29] LABS: UREA NITROGEN, BLOOD 97.0 mg/dL (7-18)
[2025-02-19 01:33] LABS: ASPARTATE AMINOTRANSFERASE 25.0 U/L (15-37); TOTAL PROTEIN, SERUM 5.8 g/dL (6.4-8.2)
[2025-02-19 01:36] LABS: INR 0.97 (0.91-1.10)
[2025-02-19] MEDS ORDERED: DOCU100T2 PO (03:32)
[2025-02-19] MEDS ORDERED: SERT25TA PO (03:32)
[2025-02-19] MEDS ORDERED: ACETAMINOPHEN 650 MG/SUPP.RECT RC PRN (04:00)
[2025-02-19] MEDS ORDERED: ONDANSETRON HCL/PF 4 MG/2 ML VIAL IVP PRN (04:00)
[2025-02-19] MEDS ORDERED: Z GUARD REMEDY 4 OZ OINT TP PRN (04:00)
[2025-02-19] MEDS ORDERED: PANTOPRAZOLE 40 MG VIAL ONE (05:10)
[2025-02-19] MEDS: PANTOPRAZOLE 40 MG VIAL IV ONE (05:10)
[2025-02-19] MEDS: PANTOPRAZOLE 80 MG in IV NS 0.9% 500 ML IV PRN (05:40)
[2025-02-19] MEDS ORDERED: LORAZEPAM 1 MG TABLET GT PRN (08:30)
[2025-02-19] MEDS: CARVEDILOL 12.5 MG TABLET GT SCH (09:00)
[2025-02-19] MEDS: SUCRALFATE 1 G/10 ML UDC GT SCH (09:00)
[2025-02-19] MEDS: SERTRALINE HCL 25 MG TABLET PO SCH (09:00)
[2025-02-19] MEDS: BLOOD SUGAR DIAGNOSTIC 1 EACH STRIP VI SCH (12:34)
[2025-02-19] MEDS: INSULIN REGULAR, HUMAN 100 UNIT/ML 3 ML VIAL SQ PRN (12:34)
[2025-02-19] MEDS: EPOETIN ALFA (10,000 UNIT) 10,000 UNIT/ML VIAL SQ ONE (15:37)
[2025-02-19] MEDS: DEXTROSE 50%-WATER 50 ML DISP.SYRIN IV PRN (17:44)
[2025-02-19] MEDS: ATORVASTATIN 40 MG TABLET GT SCH (21:30)
[2025-02-20] VITALS (7 sets, daily range): BP systolic 114–185; BP diastolic 51–78; TEMP 97.5–98.2; O2SAT 100
[2025-02-20 00:48] LABS: PLATELET COUNT (AUTO) 336 K/uL (150-450); RED BLOOD CELL COUNT(AUTO) 2.85 MIL/uL (4.5-6.0); RED CELL DISTRIBUTION WIDTH 16.5 % (11.5-15.0); WHITE BLOOD COUNT (AUTO) 4.2 K/uL (4.3-11.0)
[2025-02-20 01:20] LABS: CALCIUM, SERUM 8.0 mg/dL (8.5-10.1); CREATININE 2.5 mg/dL (0.6-1.3); SODIUM SERUM 137.0 mmol/L (136-145); UREA NITROGEN, BLOOD 33.0 mg/dL (7-18)
[2025-02-20] MEDS: hydrALAZINE HCL IV 20 MG VIAL IV PRN (04:00)
[2025-02-20] MEDS: THERAHONEY GEL 1.5 OZ TUBE TP SCH (09:25)
[2025-02-20] MEDS: PEG 3350/NA SULF,BICARB,CL/KCL 4,000 ML BOTTLE PO ONE (10:41)
[2025-02-20] MEDS: QUETIAPINE FUMARATE 25 MG TABLET GT PRN (15:29)
[2025-02-20 16:54] LABS: PLATELET COUNT (AUTO) 339 K/uL (150-450); RED BLOOD CELL COUNT(AUTO) 2.62 MIL/uL (4.5-6.0); RED CELL DISTRIBUTION WIDTH 16.3 % (11.5-15.0); WHITE BLOOD COUNT (AUTO) 5.4 K/uL (4.3-11.0)
[2025-02-20 17:27] LABS: CALCIUM, SERUM 8.1 mg/dL (8.5-10.1); CREATININE 4.5 mg/dL (0.6-1.3); PHOSPHORUS 3.2 mg/dL (2.5-4.9); SODIUM SERUM 136.0 mmol/L (136-145); UREA NITROGEN, BLOOD 46.0 mg/dL (7-18)
[2025-02-20 19:45] LABS: OCCULT BLOOD STOOL POSITIVE (NEGATIVE)
[2025-02-21] VITALS (10 sets, daily range): BP systolic 111–167; BP diastolic 54–79; TEMP 97.3–98.1; O2SAT 98–100
[2025-02-21] MEDS: PANTOPRAZOLE 80 MG in IV NS 0.9% 500 ML IV SCH (19:19)
[2025-02-22] VITALS (16 sets, daily range): BP systolic 124–185; BP diastolic 46–81; TEMP 97.7–98.2; O2SAT 97–100
[2025-02-22 14:40] LABS: PLATELET COUNT (AUTO) 287 K/uL (150-450); RED BLOOD CELL COUNT(AUTO) 2.30 MIL/uL (4.5-6.0); RED CELL DISTRIBUTION WIDTH 17.0 % (11.5-15.0); WHITE BLOOD COUNT (AUTO) 5.6 K/uL (4.3-11.0)
[2025-02-22 14:45] LABS: CALCIUM, SERUM 7.7 mg/dL (8.5-10.1); CREATININE 3.7 mg/dL (0.6-1.3); SODIUM SERUM 140.0 mmol/L (136-145); UREA NITROGEN, BLOOD 19.0 mg/dL (7-18)
[2025-02-22] MEDS ORDERED: IV NS 0.9% 250 ML IV ONE (14:56)
[2025-02-22] MEDS ORDERED: IOHEXOL-350 100 ML VIAL IV ONE (14:56)
[2025-02-22 21:49] LABS: EOSINOPHILS % (MANUAL) 5 % (0-4); LYMPHOCYTES % (MANUAL) 19 % (16-48); MONOCYTES % (MANUAL) 10 % (0-11.0); NEUTROPHILS % (MANUAL) 66 (42-76); PLATELET ESTIMATE ADEQUATE
[2025-02-22] MEDS: *INSULIN REGULAR(HUMULIN R)HUM 100 UNIT/ML VIAL SQ PRN (23:58)
[2025-02-23] VITALS (9 sets, daily range): BP systolic 136–167; BP diastolic 52–90; TEMP 97.7–98.1; O2SAT 97–98
[2025-02-23 08:36] LABS: PLATELET COUNT (AUTO) 283 K/uL (150-450); RED BLOOD CELL COUNT(AUTO) 2.90 MIL/uL (4.5-6.0); RED CELL DISTRIBUTION WIDTH 20.6 % (11.5-15.0); WHITE BLOOD COUNT (AUTO) 5.4 K/uL (4.3-11.0)
[2025-02-23 08:46] LABS: ASPARTATE AMINOTRANSFERASE 29.0 U/L (15-37); CALCIUM, SERUM 7.9 mg/dL (8.5-10.1); CREATININE 4.2 mg/dL (0.6-1.3); SODIUM SERUM 134.0 mmol/L (136-145); TOTAL PROTEIN, SERUM 4.8 g/dL (6.4-8.2); UREA NITROGEN, BLOOD 21.0 mg/dL (7-18)
[2025-02-23] MEDS: PANTOPRAZOLE 40 MG VIAL IV SCH (09:39)
[2025-02-24] VITALS: BP 135/49; TEMP 98.6; O2SAT 99
[2025-02-24 04:00] VITALS: BP 125/71; TEMP 98.1; O2SAT 100
[2025-02-24 08:00] VITALS: BP 134/78; TEMP 98.2; O2SAT 100
[2025-02-24 12:00] VITALS: BP 130/47; TEMP 97.9; O2SAT 97
[2025-02-24 16:00] VITALS: BP 148/93; TEMP 98.1; O2SAT 96
[2025-02-24 20:00] VITALS: BP 150/55; TEMP 99.3; O2SAT 95
[2025-02-25] VITALS: BP 118/71; TEMP 99.3; O2SAT 94
[2025-02-25 04:00] VITALS: BP 149/66; TEMP 98.6; O2SAT 94
[2025-02-25 08:00] VITALS: BP 162/58; TEMP 97.9; O2SAT 98
[2025-02-25] MEDS ORDERED: PANT40TA2 PO (08:26)
[2025-02-25 12:00] VITALS: BP 142/59; TEMP 98.1; O2SAT 98
[2025-02-25 16:00] VITALS: BP 125/59; TEMP 98; O2SAT 98
[2025-02-25 16:55] VITALS: BP 121/74
== END 2025-02-25 18:44 | DRG 254 ==
LOC: ER 00:18 → TELE1 02:47 → MEDSG1 02-20 09:37 → TELE1 02-20 15:27
PROVIDERS: ADMIT Internal Medicine; ATTEND Internal Medicine
PROC: 30233N1 Transfusion of Nonautologous Red Blood Cells into Peripheral Vein, Percutaneous Approach (ICD-10-PCS; principal; 2025-02-19)
PROC: 5A1D70Z Performance of Urinary Filtration, Intermittent, Less than 6 Hours Per Day (ICD-10-PCS; 2025-02-19)
PROC: 0DBK8ZZ Excision of Ascending Colon, Via Natural or Artificial Opening Endoscopic (ICD-10-PCS; 2025-02-21)
DX: K63.5 Polyp of colon (principal); G93.49 Other encephalopathy; D69.6 Thrombocytopenia, unspecified; I13.2 Hypertensive heart and chronic kidney disease with heart failure and with stage 5 chronic kidney disease, or end stage renal disease; N18.6 End stage renal disease; D62 Acute posthemorrhagic anemia; E11.22 Type 2 diabetes mellitus with diabetic chronic kidney disease; E87.1 Hypo-osmolality and hyponatremia; L89.156 Pressure-induced deep tissue damage of sacral region; D63.1 Anemia in chronic kidney disease; Z87.19 Personal history of other diseases of the digestive system; I48.91 Unspecified atrial fibrillation; I25.10 Atherosclerotic heart disease of native coronary artery without angina pectoris; I50.32 Chronic diastolic (congestive) heart failure; D64.9 Anemia, unspecified; K64.8 Other hemorrhoids; Z99.2 Dependence on renal dialysis; Z86.73 Personal history of transient ischemic attack (TIA), and cerebral infarction without residual deficits; E78.5 Hyperlipidemia, unspecified; I25.2 Old myocardial infarction; R13.10 Dysphagia, unspecified; Z79.4 Long term (current) use of insulin; Z79.899 Other long term (current) drug therapy; Z91.158 Patient's noncompliance with renal dialysis for other reason; Z93.1 Gastrostomy status; Z79.82 Long term (current) use of aspirin
CPT/HCPCS: 36415; 71045-TC; 80048-TC; 80053-TC; 80076-TC; 82272-TC; 82962-TC; 83605-TC; 83735-TC; 84100-TC; 85025-TC; 85027-TC; 85730-TC; 86850-TC; 87081-TC; 88305-TC; 90935-TC; A4223; G0378; J0360; J0885; J1815; J2470; J2704; J7030; J7040; J7050; P9016; Q9967

== ENCOUNTER 2025-03-07 22:32 | Inpatient (IN) | payer OTHER ==
[~2025-03-07] VITALS: Ht 167.6 cm; Wt 49.4 kg
[~2025-03-07 22:32] MED LIST changes: -CHOL500062 GT; +DOCU100T2 GT; -HEPA50007 SQ; +PANT40TA2 PO; +SERT25TA GT; -TICA90TA GT
[2025-03-07] MEDS ORDERED: PANTOPRAZOLE 40 MG VIAL ONE (23:19)
[2025-03-07] MEDS ORDERED: ONDANSETRON HCL/PF 4 MG/2 ML VIAL ONE (23:19)
[2025-03-07] MEDS: ONDANSETRON HCL/PF 4 MG/2 ML VIAL IVP ONE (23:24)
[2025-03-07] MEDS: PANTOPRAZOLE 80 MG in IV NS 0.9% 100 ML IV ONE (23:25)
[2025-03-07] MEDS: IV NS 0.9% 500 ML BAG IV ONE (23:25)
[2025-03-07 23:40] LABS: PLATELET COUNT (AUTO) 386 K/uL (150-450); RED BLOOD CELL COUNT(AUTO) 3.36 MIL/uL (4.5-6.0); RED CELL DISTRIBUTION WIDTH 24.2 % (11.5-15.0); WHITE BLOOD COUNT (AUTO) 15.3 K/uL (4.3-11.0)
[2025-03-07 23:52] LABS: ASPARTATE AMINOTRANSFERASE 22.0 U/L (15-37); CALCIUM, SERUM 8.8 mg/dL (8.5-10.1); CREATININE 4.7 mg/dL (0.6-1.3); INR 0.93 (0.91-1.10); SODIUM SERUM 137.0 mmol/L (136-145); TOTAL PROTEIN, SERUM 6.1 g/dL (6.4-8.2); UREA NITROGEN, BLOOD 40.0 mg/dL (7-18)
[2025-03-08] MEDS ORDERED: ACETAMINOPHEN 325 MG TABLET PO PRN (02:30)
[2025-03-08 02:45] VITALS: BP 153/67; TEMP 97.9; O2SAT 100
[2025-03-08 04:01] VITALS: BP 153/67; TEMP 97.9; O2SAT 100
[2025-03-08] MEDS: CEFTRIAXONE 1 G in IV D5W 50 ML IV SCH (04:42)
[2025-03-08] MEDS: CEFTRIAXONE 1GM BAG (ER ONLY) 50 ML IV ONE (07:38)
[2025-03-08 08:00] VITALS: BP 141/84; TEMP 98.4; O2SAT 100
[2025-03-08 08:06] LABS: LACTIC ACID 0.8 mmol/L (0.4-2.0)
[2025-03-08] MEDS: PANTOPRAZOLE 40 MG VIAL IV SCH (08:37)
[2025-03-08 08:55] LABS: CALCIUM, SERUM 8.4 mg/dL (8.5-10.1); CREATININE 5.1 mg/dL (0.6-1.3); SODIUM SERUM 139.0 mmol/L (136-145); UREA NITROGEN, BLOOD 51.0 mg/dL (7-18)
[2025-03-08 08:57] LABS: PLATELET COUNT (AUTO) 317 K/uL (150-450); RED BLOOD CELL COUNT(AUTO) 2.72 MIL/uL (4.5-6.0); RED CELL DISTRIBUTION WIDTH 23.4 % (11.5-15.0); WHITE BLOOD COUNT (AUTO) 12.1 K/uL (4.3-11.0)
[2025-03-08] MEDS ORDERED: CLON0.1T GT (08:58)
[2025-03-08 09:57] LABS: PHOSPHORUS 0.9 mg/dL (2.5-4.9)
[2025-03-08] MEDS ORDERED: DEXTROSE 50%-WATER 50 ML DISP.SYRIN IV PRN (11:00)
[2025-03-08] MEDS ORDERED: QUETIAPINE FUMARATE 25 MG TABLET GT PRN (11:00)
[2025-03-08] MEDS ORDERED: CLONIDINE HCL 0.1 MG TABLET GT PRN (11:00)
[2025-03-08] MEDS ORDERED: LORAZEPAM 1 MG TABLET GT PRN (11:00)
[2025-03-08 11:30] VITALS: BP 156/63; TEMP 98.1; O2SAT 99
[2025-03-08] MEDS: SUCRALFATE 1 G TABLET GT SCH (13:05)
[2025-03-08] MEDS: METOCLOPRAMIDE HCL 10 MG TABLET GT SCH (13:05)
[2025-03-08] MEDS: BLOOD SUGAR DIAGNOSTIC 1 EACH STRIP IN SCH (13:42)
[2025-03-08] MEDS: INSULIN REGULAR, HUMAN 100 UNIT/ML 3 ML VIAL SQ PRN (13:42)
[2025-03-08 16:00] VITALS: BP 139/72; TEMP 98.4; O2SAT 99
[2025-03-08] MEDS: CARVEDILOL 12.5 MG TABLET GT SCH (17:25)
[2025-03-08] MEDS: DOCUSATE SODIUM LIQ 100 MG/10 ML UDC GT SCH (17:25)
[2025-03-08] MEDS: POTASSIUM CHLORIDE 20 MEQ POWDER PACKET GT ONE (17:26)
[2025-03-08] MEDS: NEUTRA PHOS 1 POWD.PACKET GT ONE (17:26)
[2025-03-08] MEDS: ONDANSETRON HCL/PF 4 MG/2 ML VIAL IVP PRN (18:47)
[2025-03-08 20:00] VITALS: BP 121/50; TEMP 98.1; O2SAT 100
[2025-03-08 21:01] LABS: CALCIUM, SERUM 8.3 mg/dL (8.5-10.1); CREATININE 5.4 mg/dL (0.6-1.3); PHOSPHORUS 1.5 mg/dL (2.5-4.9); UREA NITROGEN, BLOOD 65.0 mg/dL (7-18)
[2025-03-08 21:16] LABS: SODIUM SERUM 138.0 mmol/L (136-145)
[2025-03-08] MEDS: ATORVASTATIN 40 MG TABLET GT SCH (22:00)
[2025-03-09] VITALS: BP 130/71; TEMP 97.7; O2SAT 98
[2025-03-09 08:07] LABS: PLATELET COUNT (AUTO) 388 K/uL (150-450); RED BLOOD CELL COUNT(AUTO) 2.61 MIL/uL (4.5-6.0); RED CELL DISTRIBUTION WIDTH 24.7 % (11.5-15.0); WHITE BLOOD COUNT (AUTO) 15.9 K/uL (4.3-11.0)
[2025-03-09 08:21] LABS: CALCIUM, SERUM 8.6 mg/dL (8.5-10.1); CREATININE 6.0 mg/dL (0.6-1.3); PHOSPHORUS 1.8 mg/dL (2.5-4.9); SODIUM SERUM 140.0 mmol/L (136-145); UREA NITROGEN, BLOOD 69.0 mg/dL (7-18)
[2025-03-09] MEDS: VIT B CMPLX 3/FA/VIT C/BIOTIN 1 TAB TABLET GT SCH (08:50)
[2025-03-09] MEDS: SERTRALINE HCL 25 MG TABLET GT SCH (08:50)
[2025-03-09] MEDS: PROSOURCE / PROSTAT (PYXIS) 30 ML UDC GT SCH (08:51)
[2025-03-09] MEDS: FOLIC ACID 1 MG TABLET GT SCH (08:51)
[2025-03-09] MEDS ORDERED: NEPRO 1,000 ML BOTTLE GT PRN (12:30)
[2025-03-09] MEDS: NEPRO 1,000 ML BOTTLE GT PRN (13:55)
[2025-03-09 16:00] VITALS: BP 158/74; TEMP 97.7; O2SAT 99
[2025-03-09 20:00] VITALS: BP 140/80; TEMP 97.5; O2SAT 98
[2025-03-10] VITALS: BP 98/65; TEMP 98.1; O2SAT 100
[2025-03-10 04:00] VITALS: BP 120/80; TEMP 97.7; O2SAT 100
[2025-03-10 08:00] VITALS: BP 148/69; TEMP 97.9; O2SAT 96
[2025-03-10] MEDS: PANTOPRAZOLE 40 MG/PACK PACK GT SCH (08:54)
[2025-03-10 11:30] VITALS: BP 96/64; TEMP 98.2; O2SAT 97
[2025-03-10 16:00] VITALS: BP 116/74; TEMP 98.6; O2SAT 98
[2025-03-11] VITALS (8 sets, daily range): BP systolic 90–137; BP diastolic 54–79; TEMP 97.3–98.4; O2SAT 96–100
[2025-03-11 06:37] LABS: CALCIUM, SERUM 8.3 mg/dL (8.5-10.1); CREATININE 3.1 mg/dL (0.6-1.3); PHOSPHORUS 1.5 mg/dL (2.5-4.9); SODIUM SERUM 138.0 mmol/L (136-145); UREA NITROGEN, BLOOD 20.0 mg/dL (7-18)
[2025-03-11 07:03] LABS: PLATELET COUNT (AUTO) 439 K/uL (150-450); RED BLOOD CELL COUNT(AUTO) 2.80 MIL/uL (4.5-6.0); RED CELL DISTRIBUTION WIDTH 24.1 % (11.5-15.0); WHITE BLOOD COUNT (AUTO) 10.2 K/uL (4.3-11.0)
[2025-03-11] MEDS: K PHOS NEUTRAL 250 MG TABLET GT ONE (07:47)
[2025-03-11 15:02] LABS: CALCIUM, SERUM 8.9 mg/dL (8.5-10.1); CREATININE 3.5 mg/dL (0.6-1.3); PHOSPHORUS 2.0 mg/dL (2.5-4.9); SODIUM SERUM 138.0 mmol/L (136-145); UREA NITROGEN, BLOOD 24.0 mg/dL (7-18)
[2025-03-12 04:00] VITALS: BP 118/76; TEMP 98; O2SAT 99
[2025-03-12 07:40] LABS: PLATELET COUNT (AUTO) 344 K/uL (150-450); RED BLOOD CELL COUNT(AUTO) 3.15 MIL/uL (4.5-6.0); RED CELL DISTRIBUTION WIDTH 21.1 % (11.5-15.0); WHITE BLOOD COUNT (AUTO) 7.6 K/uL (4.3-11.0)
[2025-03-12 07:48] LABS: CALCIUM, SERUM 8.4 mg/dL (8.5-10.1); CREATININE 2.7 mg/dL (0.6-1.3); PHOSPHORUS 1.9 mg/dL (2.5-4.9); SODIUM SERUM 137.0 mmol/L (136-145); UREA NITROGEN, BLOOD 13.0 mg/dL (7-18)
[2025-03-12 08:00] VITALS: BP 170/80; TEMP 97.6; O2SAT 100
[2025-03-12] MEDS: POTASSIUM PHOSPHATE MM 7.5 MMOL in IV NS 0.9% 100 ML IV SCH (10:54)
[2025-03-12 12:00] VITALS: BP 126/62; TEMP 97.7; O2SAT 100
[2025-03-12 16:00] VITALS: BP 103/54; TEMP 97.6; O2SAT 100
[2025-03-12 20:00] VITALS: BP 156/76; TEMP 98.1; O2SAT 100
[2025-03-12] MEDS: NEPRO 1,000 ML BOTTLE GT PRN (21:45)
[2025-03-13] VITALS: BP 128/73; TEMP 98.4; O2SAT 100
[2025-03-13 04:00] VITALS: BP 129/71; TEMP 97.7; O2SAT 99
[2025-03-13 07:07] LABS: PLATELET COUNT (AUTO) 384 K/uL (150-450); RED BLOOD CELL COUNT(AUTO) 3.11 MIL/uL (4.5-6.0); RED CELL DISTRIBUTION WIDTH 21.2 % (11.5-15.0); WHITE BLOOD COUNT (AUTO) 7.8 K/uL (4.3-11.0)
[2025-03-13 08:00] VITALS: BP 160/75; TEMP 98.1; O2SAT 99
[2025-03-13 08:02] LABS: CALCIUM, SERUM 8.7 mg/dL (8.5-10.1); CREATININE 2.6 mg/dL (0.6-1.3); PHOSPHORUS 3.0 mg/dL (2.5-4.9); SODIUM SERUM 141.0 mmol/L (136-145); UREA NITROGEN, BLOOD 14.0 mg/dL (7-18)
[2025-03-13] MEDS: POTASSIUM CHLORIDE 20 MEQ POWDER PACKET GT SCH (10:28)
[2025-03-13 11:30] VITALS: BP 143/76; TEMP 97.7; O2SAT 100
== END 2025-03-13 15:16 | DRG 253 ==
LOC: ER 22:38 → TELE 03-08 02:26
PROVIDERS: ATTEND Internal Medicine
PROC: 5A1D70Z Performance of Urinary Filtration, Intermittent, Less than 6 Hours Per Day (ICD-10-PCS; 2025-03-09)
PROC: 30233N1 Transfusion of Nonautologous Red Blood Cells into Peripheral Vein, Percutaneous Approach (ICD-10-PCS; principal; 2025-03-11)
DX: K92.2 Gastrointestinal hemorrhage, unspecified (principal); G93.41 Metabolic encephalopathy; I13.2 Hypertensive heart and chronic kidney disease with heart failure and with stage 5 chronic kidney disease, or end stage renal disease; N18.6 End stage renal disease; D69.6 Thrombocytopenia, unspecified; F29 Unspecified psychosis not due to a substance or known physiological condition; E11.22 Type 2 diabetes mellitus with diabetic chronic kidney disease; I48.91 Unspecified atrial fibrillation; Z99.2 Dependence on renal dialysis; E78.5 Hyperlipidemia, unspecified; I50.32 Chronic diastolic (congestive) heart failure; I25.10 Atherosclerotic heart disease of native coronary artery without angina pectoris; Z79.82 Long term (current) use of aspirin; Z79.4 Long term (current) use of insulin; Z79.899 Other long term (current) drug therapy; I69.351 Hemiplegia and hemiparesis following cerebral infarction affecting right dominant side; R13.10 Dysphagia, unspecified; Z87.19 Personal history of other diseases of the digestive system; Z93.1 Gastrostomy status; I25.2 Old myocardial infarction; E87.6 Hypokalemia; D50.0 Iron deficiency anemia secondary to blood loss (chronic); D72.829 Elevated white blood cell count, unspecified; M89.8X9 Other specified disorders of bone, unspecified site
CPT/HCPCS: 36415; 71045-TC; 80048-TC; 80076-TC; 82962-TC; 83605-TC; 83735-TC; 84100-TC; 85025-TC; 85027-TC; 85730-TC; 86850-TC; 87081-TC; 90935-TC; A4223; G0378; J0696; J1815; J2405; J2470; J3490; J7030; J7040; J7060; J8597; P9016